=== PATIENT | male | born 1955 | race Caucasian/White ===

== ENCOUNTER 2025-02-17 10:40 | Emergency (ER) | payer MEDICARE, OTHER, SELFPAY ==
[2025-02-17] VITALS (11 sets, daily range): BP systolic 113–128; BP diastolic 70–74; PULSE 59–67; RESP 16; TEMP 36.3; O2SAT 94–97; BMI 27.3
--- NOTE | 2025-02-17 11:14 | ED.GENADULT ---
HPI - General Adult General Chief complaint: GI Bleed Stated complaint: hemmorrhoids Time Seen by Provider: 02/17/25 11:12 History of Present Illness HPI narrative: Patient here with daughter. Has urethral cancer diagnosed 11months ago. Has been going through chemo and immunotherapy. Cancer is progressing so they changed his treatment last week. This caused severe diarrhea. Held treatment yesterday due to this. Hasn't had a BM since yesterday and feels he is getting better. States he sat on the toilet this morning and lot of bright red blood came out but no stool. Took 2 hours to get it to stop . Patient concerned about what we should do now. Has hx of neurogenic bowel and bladder and is incontinent at baseline. 69-year-old man presenting to the emergency department with concern of prolonged rectal bleeding. It sounds as though it has now settled. Is receiving chemotherapy for urethral cancer and with treatment regimen changed last week as resulted in a lot of diarrhea. It sounds as though they think is fairly well-hydrated. Did receive a L of fluids yesterday. Has not had a bowel movement today. Has not had chemo yesterday either due to this diarrhea. This morning while attempting to use the bathroom had about 2 hours of bleeding from the rectum. History of hemorrhoids but is worried about continued bleeding. Not particularly lightheaded nor short of breath. No complaint of abdominal pain. 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 Related Data Home Medications ?Medication ?Instructions ?Recorded ?Confirmed acetaminophen 500 mg capsule 500 mg PO Q6H PRN 02/17/25 02/17/25 amitriptyline .ROUTE 02/17/25 calcium carb, citrate, malate PO 02/17/25 cyanocobalamin (vitamin B-12) PO 02/17/25 fluoxetine .ROUTE 02/17/25 gabapentin .ROUTE 02/17/25 multivitamin with iron .ROUTE 02/17/25 nifedipine PO 02/17/25 olanzapine .ROUTE 02/17/25 ondansetron .ROUTE 02/17/25 polyethylene glycol 3350 .ROUTE 02/17/25 prochlorperazine maleate PO 02/17/25 propranolol .ROUTE 02/17/25 rosuvastatin .ROUTE 02/17/25 senna .ROUTE 02/17/25 tamsulosin PO 02/17/25 tolterodine PO 02/17/25 tramadol .ROUTE 02/17/25 triamcinolone PO 02/17/25 Allergies Allergy/AdvReac Type Severity Reaction Status Date / Time No Known Drug Allergies Allergy Verified 02/17/25 11:00 Review of Systems Status of ROS: Reports: 6 or more systems reviewed and unremarkable except as noted in History and below Exam Narrative: Exam Narrative: Very pleasant. NAD. Skin is warm and dry. Breathing easily. Heart in regular rate and rhythm. Abdomen is soft and nontender. Returning later for anal and anoscopy exam shows a large hemorrhoid not terribly thrombosed just inside the anus at the 12 o'clock position. There is a clot well-formed clot noted on anoscopy. There is dried blood small amount in the anal area otherwise. No active bleeding at this time Const: Vital Signs, click to edit/add: Vital Signs - 24 hr 02/17/25 11:12 Temperature 97.3 F L Pulse Rate [Pulse Oximeter] 67 Respiratory Rate 16 Blood Pressure [Le ft Upper Arm] 117/73 Pulse Oximetry 94 Oxygen Delivery Me thod Room Air Documenting provider has reviewed patient's vital signs: yes Course Vital Signs Vital signs: Initial Vital Signs Temperature 97.3 F L 02/17/25 11:12 Temperature Source Temporal Artery Scan 02/17/25 11:12 Pulse Rate 67 02/17/25 11:12 Pulse Rhythm Regular 02/17/25 11:12 Pulse Strength 3+ Normal 02/17/25 11:12 Respiratory Rate 16 02/17/25 11:12 Blood Pressure 117/73 02/17/25 11:12 Blood Pressure Mean 87 02/17/25 11:12 Blood Pressure Position Sitting 02/17/25 11:12 Pulse Oximetry 94 02/17/25 11:12 Oxygen Delivery Method Room Air 02/17/25 11:12 Vital Signs Temperature 97.3 F L 02/17/25 11:12 Pulse Rate 67 02/17/25 11:12 Respiratory Rate 16 02/17/25 11:12 Blood Pressure 117/73 02/17/25 11:12 Pulse Oximetry 94 02/17/25 11:12 Oxygen Delivery Method Room Air 02/17/25 11:12 Temperature 97.3 F L 02/17/25 11:12 Pulse Rate 59 L 02/17/25 12:33 Respiratory Rate 16 02/17/25 11:12 Blood Pressure 114/72 02/17/25 12:32 Pulse Oximetry 94 02/17/25 12:33 Oxygen Delivery Method Room Air 02/17/25 11:12 Medical Decision Making MDM Narrative Medical decision making narrative: I have proposed checking at baseline hemoglobin here and other labs if there might be other indication for further workup. Check chemistries due to frequent diarrhea. This might be settling now after had not received his chemo yesterday. He feels he is fairly well-hydrated now. Does not appear to be active bleeding. Monitor here in the emergency department for continued bleeding. I do think that rectal passage bleeding is the likely source of the blood that he was describing. Monitor in the ER without further event. Labs are generally reassuring. . No neutropenia. At this time I do not think needs intervention with this hemorrhoid here in the ER. If he had sensation below the waist perhaps might be experiencing more pain given what I saw. I think since this is not bleeding at this time I would leave it alone. See patient discharge plan for further discussion It was a pleasure to take care of you today. Try to keep your stool soft. Focus on hydration and fiber intake. You might supplement with MiraLax equivalent. If this bleeding recurs and you can not get it to stop (maybe with a tampon) within 2 hours or you are feeling lightheaded, short of breath or for some reason having uncontrolled pain, please be re-evaluated. You might consider placing a hydrocortisone suppository nightly over the next 3 nights. Medical Records Medical records reviewed: Yes I reviewed the patient's medical records Lab Data Lab results reviewed: Yes I reviewed the patient's lab results Labs: Lab Results 02/17/25 Range/Units 11:35 WBC 3.75 L (4.50-11.00) K/uL RBC 4.54 (4.30-5.90) m/uL Hgb 13.7 (13.5-17.5) gm/dL Hct 40.2 (37.0-53.0) % MCV 89 (80-100) fL MCH 30 (26-34) pg MCHC 34 (32-36) gm/dL RDW Coeff of Ronnie 13.1 (11.5-15.5) % Plt Count 98 L (140-440) K/uL Neut % (Auto) 52.5 (42.0-72.0) % Lymph % (Auto) 28.5 (20-44) % [place] % (Auto) 9.1 (0.0-11.0) % Eos % (Auto) 9.1 H (0.0-7.0) % Baso % (Auto) 0.5 (0.0-3.0) % Neut # (Auto) 2.00 (1.7-7.0) K/uL Lymph # (Auto) 1.10 (0.90-2.90) K/uL [place] # (Auto) 0.30 (0.00-0.90) K/UL Eos # (Auto) 0.30 (0.00-0.50) K/uL Baso # (Auto) 0.00 (0.00-0.30) K/uL Abs Immat Gran (auto) 0.00 (0.00-0.30) K/uL Imm/Tot Granulo (auto) 0.3 % INR 1.00 (0.91-1.10) APTT 30 (23-33) Seconds Sodium 137 (135-149) mmol/L Potassium 4.1 (3.6-5.1) mmol/L Chloride 103 (96-114) mmol/L Carbon Dioxide 28 (20-32) mmol/L Anion Gap 6 L (7-15) mEq/L BUN 18 (7-30) mg/dL Creatinine 1.0 (0.5-1.5) mg/dL Estimated Creat Clear 78.78 Estimated GFR 80 ml/min Glucose 130 H (60-115) mg/dL Calcium 9.2 (8.4-10.6) mg/dL C-Reactive Protein 1.9 H (0.5-1.0) mg/dL Discharge Plan Discharge Clinical Impression: Bleeding hemorrhoid Patient Disposition: Home w/ Parent or Adult Condition: Improved Additional Instructions: It was a pleasure to take care of you today. Try to keep your stool soft. Focus on hydration and fiber intake. You might supplement with MiraLax equivalent. If this bleeding recurs and you can not get it to stop (maybe with a tampon) within 2 hours or you are feeling lightheaded, short of breath or for some reason having uncontrolled pain, please be re-evaluated. You might consider placing a hydrocortisone suppository nightly over the next 3 nights. Prescriptions: No Action acetaminophen 500 mg capsule 500 mg PO Q6H PRN amitriptyline .ROUTE calcium carb, citrate, malate PO cyanocobalamin (vitamin B-12) PO fluoxetine [Prozac] .ROUTE gabapentin [Neurontin] .ROUTE multivitamin with iron .ROUTE nifedipine PO olanzapine .ROUTE ondansetron .ROUTE polyethylene glycol 3350 [Miralax] .ROUTE prochlorperazine maleate PO propranolol [Inderal] .ROUTE rosuvastatin [Crestor] .ROUTE senna [Senokot] .ROUTE tamsulosin PO tolterodine [Detrol LA] PO tramadol .ROUTE triamcinolone [Aristocort] PO Follow Up/Referrals: Provider,Not a Local [Primary Care Provider, Family Practice] Stand Alone Forms: [email or web address] Info Instructions
[2025-02-17 11:42] LABS: Hematocrit* 40.2 % (37.0-53.0); Hemoglobin* 13.7 gm/dL (13.5-17.5); Immature Granulocytes Pct Auto 0.3 %; Mean Corpuscular HGB Conc 34 gm/dL (32-36); Mean Corpuscular Hemoglobin 30 pg (26-34); Mean Corpuscular Volume 89 fL (80-100); RDW Coefficient of Variation % 13.1 % (11.5-15.5); Red Blood Count* 4.54 m/uL (4.30-5.90); White Blood Count* 3.75 K/uL (4.50-11.00)
[2025-02-17 11:44] LABS: Immature Granulocytes Abs Auto 0.00 K/uL (0.00-0.30); Lymphocytes Absolute Auto 1.10 K/uL (0.90-2.90); Slide Review Reflex No
[2025-02-17 11:54] LABS: Chloride* 103 mmol/L (96-114)
[2025-02-17 11:55] LABS: Potassium* 4.1 mmol/L (3.6-5.1); Sodium* 137 mmol/L (135-149)
[2025-02-17 11:58] LABS: Anion Gap 6 mEq/L (7-15); Blood Urea Nitrogen* 18 mg/dL (7-30); Calcium* 9.2 mg/dL (8.4-10.6); Carbon Dioxide* 28 mmol/L (20-32); Creatinine* 1.0 mg/dL (0.5-1.5); Est. Creatinine Clearance* 78.78; Estimated Glomerular Filt Rate 80 ml/min; Glucose* 130 mg/dL (60-115)
[2025-02-17 13:00] LABS: INR 1.00 (0.91-1.10); Prothrombin Time 14.0 Seconds
== END 2025-02-17 13:20 | disposition home or self-care (01) ==
PROVIDERS: Emergency Provider Family Medicine
DX: K64.9 Unspecified hemorrhoids (principal); C68.0 Malignant neoplasm of urethra; Z79.69 Long term (current) use of other immunomodulators and immunosuppressants
CPT/HCPCS: 36415; 80048; 85025; 85610; 85730; 86140; 99283; 99284

== ENCOUNTER 2025-04-06 12:23 | Observation (INO) | payer MEDICARE, OTHER, SELFPAY ==
[2025-04-06] VITALS (8 sets, daily range): BP systolic 107–160; BP diastolic 52–77; PULSE 6–93; RESP 8–28; TEMP 36.4–37.3; O2SAT 81–95; BMI 27.3; BMI 27.4
--- NOTE | 2025-04-06 | CRLHL7_ITS ---
For Patients: As a result of the Century Cures Act, medical imaging exams and procedure reports are released immediately into your electronic medical record. You may view this report before your referring provider. If you have questions, please contact your health care provider. INDICATION: Abnormality seen on abdomen/pelvis CT scan. TECHNIQUE: CT chest without contrast. COMPARISON: CT, January 24, 2025. FINDINGS: Lungs and pleura: Worsening diffuse bilateral pulmonary nodules/nodular consolidations, some with cavitations. No pleural effusions, pleural thickening, or pneumothorax. Heart and vasculature: Heart size is normal. Coronary artery calcifications. Thoracic aorta and pulmonary artery are normal in caliber. Lymph nodes/mediastinum: Multiple mildly enlarged mediastinal and bilateral hilar lymph nodes.. Chest wall: No masses. Upper abdomen: Please refer to same-day CT abdomen/pelvis for further evaluation.. Bones: Posterior thoracolumbar hardware fixation. IMPRESSION: Worsening diffuse bilateral pulmonary nodules/nodular consolidations, some with cavitations, likely worsening pulmonary metastasis in this patient with known malignancy. Superimposed infection should be clinically excluded. Persistent multiple mildly enlarged mediastinal bilateral hilar lymph nodes. Please note that all CT scans at this facility use dose modulation, iterative reconstruction, and/or weight-based dosing when appropriate to reduce radiation dose to as low as reasonably achievable. Dictated by Ryan Gonzalez MD @ 04/06/2025 2:39:15 PM (Electronically Signed)
--- OUTSIDE RECORDS SUMMARY | 2025-04-06 12:25 | XMS_ITS | Data Portability ---
Author Organization [facility], [facility] Address [address] [place] [address] Care Team Providers [facility] Manager Name Role Phone [facility] Primary Care Provider Assessment No assessment recorded. Plan of Treatment Reminders Order Date Submit Date Provider Last Modified By Organization Details Last Modified Time Details Appointments None recorded. 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 2024 025 [email or web address] 4 [facility], [address], [place], [address], 5 15:27:41 Procedures None recorded. Surgeries None recorded. Imaging None recorded. Medication Orders None recorded. Patient TargetsNo targets recorded. 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 The stricture biopsies were benign but there could be cancer there (I'll note the biopsies went into lamina propria, and were meaty, as confirmed in the path), but sampling error is possible, as well as a primary lesion more proximal that was not detected and/or sampled. I've reached to his medical oncologist, Dr. Zhou to clarify his treatment plan as it will impact our plan for the stent and for future sampling consideration. For now, the plan will be to exchange the stent in 3 months, with the presumption to optimize renal function in prep for what could be a chemo based treatment regimen. Juan Pablo and his daughter agree with this plan and he knows that he must keep track of that stent's existence in the interim, no matter the timeline, for exchange in 3 months. Not available 04/29/2024 09:34:04 09/17/2024 [id number] We are amidst persistent UTI after stent placement - I do not think biofilm is a factor at 4 weeks but if UTIs continue we may need to exchange stent sooner. We also are tracking his progress with treatment and could consider right neph-U for both oncologic control and to eliminate his persistent UTIs if they continue, should we find his systemic treatment progress supports such a move. Culture sent today, following. Not available 09/17/2024 17:36:33 03/05/2025 [id number] Juan Pablo has increasing lung burden of his metastatic disease, and is not tolerating the stent for local control of his obstructive cancer. We have discussed options like conversion to PCN (he wishes to begin this process), and also palliative nephrectomy - but I question his surgical candidacy for this - he understands this. We'll try some Gemtesa for the bladder spasms, but may need to remove the stent and proceed with PCN. Discussed case with his oncologist, who is seeing him in 11 days, with updated imaging. We've been attempting to optimize GFR for his gem/carbo et al treatments, this remains a goal for now. Not available 03/05/2025 14:08:25 Reason for Referral Interventional Radiologist R eferral for Hydronephrosis Has obstructed right kidney (urothelial cancer), has stent, but cannot tolerate stent, please eval/treat for right PCN placement. Referring Physician: Carlos Eduardo Marks, Urology, Encounter Date: 03/05/2025 Results Created Date Observation Date Name Description Value Unit Range Abnormal Flag Note LastModifiedBy Organization Detail LastModifiedTime 09/18/1909/17/2024 URINE CULTU RE final report MICROB IOLOGY RESULT S SOURC E Void KNOWN ALLER GIES adhes spencer tape TREAT MENT on Cipro floxi n MEDIA PLATE D AT: Media plate d on 2024 @ 5:41 PM RESUL T No Growt h This lab resul t is being provi ded to you and your provi erlin at the same time in compl iance with the ry Cures Act. Your provi erlin may not have had time to revie w and make recom menda tions based on the resul t. Pleas e allow up to one week for provi erlin revie w. Not Available [facility] [address], [place], [address], 09/19/2024 13:28:23 09/18/19 25 09/17/2024 urina lysis , dipst ick Color-Status Yellow Not Available [facility] [address], [place], [address], 09/17/2024 14:49:22 09/18/19 25 09/17/2024 urina lysis , dipst ick Clarity-Stat us Clear Not Available [facility] [address], [place], [address], 09/17/2024 14:49:22 04/07/20 24 04/06/2024 fluor oscop y evalu ation (PROC ) No observ ation record ed. [facility] [address], [place], [address], 04/07/2024 17:51:34 02/04/20 25 02/03/2025 CT, abdom en + pelvi s, w/o contr ast No observ ation record ed. [facility] (Radiology) [address] [facility] [place], [address], 02/03/2025 17:28:04 02/06/20 25 02/05/2025 fluor oscop y (PROC ) No observ ation record ed. [email or web address] Not Available 10:37:36 03/20/20 25 03/19/2025 anteg rade nephr ostog luis daniel and/o r urete rogra m, injec tion proce dure (PROC ) No observ ation record ed. [facility] [address], [place], [address], 03/22/2025 15:27:31 Result Notes None recorded. 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 4 09:26:24 Metastatic malignant neoplasm to liver 47881416 Active 2023 Carlos Eduardo marroquin MD [address] [place] [address],[address] [place] [address], [address], [facility] 4 09:30:57 Metastatic malignant neoplasm to lung 28349789 Active 2023 Carlos Eduardo marroquin MD [address] [place] [address],[address] [place] [address], [address], [facility] 4 09:34:13 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 5329155310349 00 Active 2024 Carlos Eduardo marroquin MD [address] [place] [address],[address], [place], [address], [facility] 5 16:51:26 Hydronephro sis 99194851 Active 2024 Carlos Eduardo marroquin MD [address] [place] [address],[address], [place], [address], [facility] 08:52:13 Ureteric pain 205560521 Active 2024 Carlos Eduardo marroquin MD [address] [place] [address],[address], [place], [address], [facility] 13:09:07 Stricture of ureter 29889600 Active 2024 Carlos Eduardo marroquin MD [address] [place] [address],[address], [place], [address], [facility] 10:15:27 Lower urinary tract symptoms due to benign prostatic hypertrophy 0505137126255 1 Active 2024 Carlos Eduardo marroquin MD [address] [place] [address],[address], [place], [address], [facility] 16:56:24 Right flank pain 598529459 Active 2024 Carlos Eduardo marroquin MD [address] [place] [address],[address], [place], [address], [facility] 09:05:37 Spasm of urinary bladder 477383170 Active 2024 Carlos Eduardo marroquin MD [address] [place] [address],[address], [place], [address], [facility] 13:56:41 Problem Notes None recorded. Procedures Surgical History Date Name Laterality Status Provider Name and Address Organization Details Recorded Time 03/05/20 25 COMPLEX VISIT completed Carlos Eduardo Marks MD [address] [place] [address],[address], [place], [address], [facility] 03/05/2025 13:56:05 08/13/19 25 CYSTOSCOPY WITH URETERAL STENT EXCHANGE (SURG) completed Joann Rae [facility] 08/14/2024 15:14:30 04/06/20 24 ureterostomy completed Corinna Pugh [facility] 04/28/2024 10:56:42 04/27/20 19 colonoscopy completed Corinna Pugh [facility] 04/28/2024 10:57:39 Imaging Results None recorded. Procedure Notes None recorded. Medical Equipment None Reported. Allergies Allergen ID Allergen Name Allergen Category Reaction Reaction Severity Criticality Documentation Date Start Date Code Code System Note Provider Name and Address Organization Details Recorded Time 322360 adhesive tape environme nt,medica tion Not available Not available Not available 09/17/2024 Rhonda ramos, [facility] 14:46:57 930514 Adhesive agent (substanc e) environme nt,medica tion rash Not available Not available 03/20/20252024 19739 0007 SNOMED Not Available roshan - External Data Service - prod 09:53:02 Medications Name Sig Start Date Stop Date Status Note LastModified by Organization Details LastModified Time Prescriptio n - Renewal active Not Available Not Available Not Available gabapentin 600 mg tablet TAKE ONE TABLET BY MOUTH THREE TIMES DAILY active Not Available Not Available No t Available polyethylen e glycol 3350 17 gram oral powder packet TAKE ONE PACKET (17 G TOTAL) BY MOUTH DAILY. active Not Available Not Available No t Available azithromyci n 250 mg tablet 04/28 completed Not Available Not Available Not Available senna 8.6 mg tablet TAKE ONE TABLET BY MOUTH ONCE DAILY NEEDED FOR CONSTIPAT ION. active Not Available Not Available No t Available prednisone 20 mg tablet TAKE 3 TABLETS BY MOUTH DAILY. TAKE WITH FOOD TO PREVENT STOMACH UPSET 02/28 completed Not Available Not Available Not Available nifedipine ER 30 mg tablet,exte nded release TAKE 1 TABLET BY MOUTH DAILY 09/17 completed Not Available Not Available Not Available ciprofloxac in 500 mg tablet TAKE 1 TABLET BY MOUTH EVERY 12 HOURS WITH FOOD 02/28 completed Not Available Not Available Not Available tramadol 50 mg tablet TAKE 1 TABLET BY MOUTH EVERY 6 HOURS NEEDED FOR PAIN active Not Available Not Available No t Available amitriptyli ne 50 mg tablet TAKE ONE TABLET BY MOUTH NIGHTLY AT BEDTIME active Not Available Not Available No t Available triamcinolo ne acetonide 0.1 % topical cream APPLY TOPICALLY TO THE AFFECTED AREA TWICE DAILY active Not Available Not Available No t Available tamsulosin 0.4 mg capsule TAKE 1 CAPSULE BY MOUTH EVERY DAY active Not Available Not Available No t Available Mapap (acetaminop hen) 500 mg capsule TAKE TWO CAPSULES BY MOUTH TWICE DAILY NEEDED FOR PAIN. active Not Available Not Available No t Available cephalexin 500 mg capsule TAKE 1 CAPSULE BY MOUTH EVERY 8 HOURS 09/17 completed Not Available Not Available Not Available gabapentin 300 mg capsule Take 1 capsule 3 times a day by oral route. active Not Available Not Available No t Available albuterol sulfate HFA 90 mcg/actuati on aerosol inhaler INHALE 2 PUFFS BY MOUTH FOUR TIMES DAILY NEEDED FOR SHORNTESS OF BREATH 02/28 completed Not Available Not Available Not Available propranolol 20 mg tablet TAKE ONE TABLET BY MOUTH THREE TIMES DAILY active Not Available Not Available No t Available nifedipine ER 60 mg tablet,exte nded release TAKE 1 TABLET BY MOUTH DAILY active Not Available Not Available No t Available amoxicillin 875 mg-potassiu m clavulanate 125 mg tablet TAKE 1 TABLET BY MOUTH TWICE DAILY WITH MEALS FOR 7 DAYS 04/28 completed Not Available Not Available Not Available rosuvastati n 20 mg tablet active Not Available Not Available Not Available duloxetine 30 mg capsule,del ayed release TAKE ONE CAPSULE BY MOUTH ONCE DAILY IN THE MORNING active Not Available Not Available No t Available fluoxetine active Not Available Not Av ailable Not Available propranolol active BID Not Available Not A vailable Not Available Tylenol active PRN Not Available Not Avail able Not Available Vitamin B12 active Not Available Not A vailable Not Available Vitals Date Recorded Body height Body mass index (BMI) Body weight Provider Name and Address Organization Details Last Updated DateTime 09/17/2024 185.42 cm 30.3 kg/m2 516132.25 g Rhonda Chase [facility] 09/17/2024 14:46:14 Date Recorded Body height Body mass index (BMI) Body weight Provider Name and Address Organization Details Last Updated DateTime 03/05/2025 185.42 cm 28.4 kg/m2 09492.36 g Kaylyn Mathis [facility] 03/05/2025 09:42:08 Date Recorded Body height Body mass index (BMI) Body weight Provider Name and Address Organization Details Last Updated DateTime 04/28/2024 185.42 cm 27.7 kg/m2 97846.4 g Corinna Pugh [facility] 04/28/2024 10:54:39 Social History Question Answer Notes LastModified by Organizat ion Details LastModified Time Tobacco Smoking Status Never Smoker Corinna Keaton [facility] 04/28/2024 10:56:25 Do You Have An Advance Directive? Yes Information not available 09/17/2024 What Is Your Level Of Caffeine Consumption? None Information not available 04/28/2024 Race White Information no t available 09/17/2024 Ethnicity Not /Lat rohan Information not available 09/17/2024 Preferred Language Irish Information not available 09/17/2024 Do You Have A Medical Power Of Director Heart? Yes Information not available 09/17/2024 What Was The Date Of Your Most Recent Tobacco Screening? 09/17/2024 Information not available 09/17/2024 Has Tobacco Cessation Counseling Been Provided? No Information not available 09/17/2024 Sex: Male Functional Status Question Answer Note LastModified by Organizat ion Details LastModified Time Do you use any illicit or recreational drugs? No Information not available 09/17/2024 Do you or have you ever used any other forms of tobacco or nicotine? No Information not available 09/17/2024 What is your level of alcohol consumption? None Information not available 04/28/2024 Mental Status None recorded. Family History Nothing Reported. Medical History Condition Response Other N High Blood Pressure Y Kidney Stones N Lung Disease N Depression N GERD/Acid Reflux N Diabetes N Sexually Transmitted Infection N Bleeding Disorder N Cancer Y High Cholesterol Y Heart Disease N Immunizations Vaccine Type Date Status Note Provider Nam e and Address Organization Details Recorded Time Influenza, split virus, trivalent, preservative 4 completed Not Available [facility] 03/05/2025 09:27:51 Influenza, split virus, trivalent, preservative 7 completed Not Available [facility] 03/05/2025 09:27:51 Influenza, split virus, trivalent, preservative 8 completed [facility] Available [facility] 03/05/2025 09:27:51 Td (adult), 5 Lf tetanus toxoid, preservative free, adsorbed 8 completed Not Available [facility] 03/05/2025 09:27:51 Influenza, split virus, trivalent, preservative 8 completed Not Available [facility] 03/05/2025 09:27:51 pneumococcal polysaccharide PPV23 0 completed Not Available [facility] 03/05/2025 09:27:51 influenza, unspecified formulation 1 completed Not Available [facility] 03/05/2025 09:27:51 influenza, unspecified formulation 3 completed Not Available [facility] 03/05/2025 09:27:51 Influenza, split virus, quadrivalent, preservative 5 completed Not Available [facility] 03/05/2025 09:27:51 Tdap 7 completed Not Available [facility] 03/05/2025 09:27:51 Influenza, split virus, quadrivalent, PF 7 completed Not Available [facility] 03/05/2025 09:27:51 Influenza, split virus, quadrivalent, PF 8 completed Not Available [facility] 03/05/2025 09:27:51 zoster recombinant 0 completed Not Available [facility] 03/05/2025 09:27:51 Pneumococcal conjugate PCV 13 0 completed Not Available [facility] 03/05/2025 09:27:51 Influenza, high-dose, quadrivalent, PF 0 completed Not Available [facility] 03/05/2025 09:27:51 COVID-19, mRNA, LNP-S, PF, 100 mcg/0.5mL dose or 50 mcg/0.25mL dose 1 completed Not Available [facility] 03/05/2025 09:27:51 COVID-19, mRNA, LNP-S, PF, 100 mcg/0.5mL dose or 50 mcg/0.25mL dose 1 completed Not Available [facility] 03/05/2025 09:27:51 Influenza, high-dose, quadrivalent, PF 1 completed Not Available [facility] 03/05/2025 09:27:51 pneumococcal polysaccharide PPV23 1 completed Not Available [facility] 03/05/2025 09:27:51 zoster recombinant 1 completed Not Available [facility] 03/05/2025 09:27:51 COVID-19, mRNA, LNP-S, PF, 100 mcg/0.5mL dose or 50 mcg/0.25mL dose 1 completed Not Available [facility] 03/05/2025 09:27:51 COVID-19, mRNA, LNP-S, PF, 100 mcg/0.5mL dose or 50 mcg/0.25mL dose 2 completed Not Available [facility] 03/05/2025 09:27:51 COVID-19, mRNA, LNP-S, bivalent, PF, 50 mcg/0.5 mL or 25mcg/0.25 mL dose 2 completed Not Available [facility] 03/05/2025 09:27:51 Influenza, high-dose, quadrivalent, PF 2 completed Not Available [facility] 03/05/2025 09:27:51 Influenza, adjuvanted, quadrivalent, PF 3 completed Not Available [facility] 03/05/2025 09:27:51 COVID-19, mRNA, LNP-S, PF, noel-sucrose, 30 mcg/0.3 mL 3 completed Not Available [facility] 03/05/2025 09:27:51 COVID-19, mRNA, LNP-S, PF, noel-sucrose, 30 mcg/0.3 mL 4 completed Not Available [facility] 03/05/2025 09:27:51 Influenza, high-dose, trivalent, PF 4 completed Not Available [facility] 03/05/2025 09:27:51 Influenza, high-dose, trivalent, PF 5 completed Not Available [facility] 03/05/2025 09:27:51 Past Encounters Encounter ID Performer Location Encounter Start Date Encounter Closed Date Diagnosis/Indication Diagnosis SNOMED-CT Code Diagnosis ICD10 Code Diagnosis IMO Codes Diagnosis Note [id number] Carlos Eduardo Marks MD [facility] [address] 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 [address] [place] [address] 09/17/2024 14:32:45 09/23/2024 11:25:04 Lower urinary tract symptoms 821971435 R39.9 3789903 Transition al cell carcinoma of upper urinary tract 6921180742 C68.9 Metastatic malignant neoplasm to lung 41377367 C78.00 Metastatic malignant neoplasm to liver 96038391 C78.7 Hydronephrosis 40621838 N13.30 391269 [id number] Carlos Eduardo Marks MD [facility] [address] [place] [address] 03/05/2025 09:26:49 03/10/2025 09:36:32 Stricture of ureter 46012022 N13.5 347183 Transition al cell carcinoma of upper urinary tract 7892665037 C68.9 Metastatic malignant neoplasm to lung 40120148 C78.00 Metastatic malignant neoplasm to liver 35860182 C78.7 Lower urin lorene tract symptoms 153676417 R39.9 9391076 Hydronephrosis 56163567 N13.30 326067 Spasm of u rinary bladder 224832135 N32.89 [id number] Health Concerns Section Related Observation LastModified by Organization Detai ls LastModified Time None Recorded Concern Status LastModified by Organization Details LastModified Time None Recorded Advance Directives Directive Y: Payers Insurance Date Sequence Insurance Name Policy Number Policy Connor Covered Member ID Connor Member ID Guarantor Name 01/07/2025 2 [employer] (MEDICARE SUPPLEMENT) Juan Pablo Bernstein [id number] Juan Pablo Bernstein 03/02/2025 2 [place]: [employer] Juan Pablo Bernstein [id number] Juan Pablo Bernstein 04/02/2025 1 [employer] - [employer] (MEDICARE REPLACEMENT/A DVANTAGE - HMO) Juan Pablo Bernstein [id number] Juan Pablo Bernstein Notes Date Note Type Note Provider Name and Address Organization Details Recorded Time 04/28/2024 text/html 68M presents for follow up related to metastatic lung and liver cancer, where the primary was suspected to be UCC. CT showed right hydroureter down to a mid ureteral stricture with sharp transition, and equivocal PET scan. He is now s/p right URS diagnostic, with biopsy of this area, and proximal ureteral cytology. The ureteral stricture was confirmed, did not look overtly malignant by appearance, and its biopsies were benign. However the cytology from urine washings proximal to the stricture was frankly positive for malignant cells, consistent with UTUCC. Juan Pablo currently still has the stent in place. He has been already linked up with medical oncology, and prior to our surgery was s/p lung mass biopsy which suggested urothelial cell carcinoma primary. Patient is at his baseline today, without complaints, tolerating the stent well. Carlos Eduardo Marks MD [address] [place] [address],[address], [place], [address], [facility] 04/29/2024 09:34:25 09/17/2024 text/html 68M presents for follow up related to metastatic lung and liver cancer, UTUCC primary. CT showed right hydroureter down to a mid ureteral stricture with sharp transition, and equivocal PET scan. Right URS diagnostic, with biopsy of this area, and proximal ureteral cytology. The ureteral stricture was confirmed, did not look overtly malignant by appearance, and its biopsies were benign. However the cytology from urine washings proximal to the stricture was frankly positive for malignant cells, consistent with UTUCC. Juan Pablo is now s/p right ureteral stent exchange 08/12/2024. He has been already linked up with medical oncology, and prior to our surgery was s/p lung mass biopsy which suggested urothelial cell carcinoma primary. Receiving chemo and immuno therapy. My understanding is that he is responding. Since Jul 2024 stent exchange he has had LUTS develop acutely, UTI suspected, ABX given with temp improvement, then recurrence, now on cipro with culture from med-onc team pending from Saturday. UA today consistent with stent presence, sending culture. Carlos Eduardo Marks MD [address] [place] [address],[address], [place], [address], [facility] 09/17/2024 17:37:07 03/05/2025 text/html 69M presents for follow up related to metastatic lung and liver cancer, UTUCC primary. CT showed right hydroureter down to a mid ureteral stricture with sharp transition, and equivocal PET scan. Right URS diagnostic, with biopsy of this area, and proximal ureteral cytology. The ureteral stricture was confirmed, did not look overtly malignant by appearance, and its biopsies were benign. However the cytology from urine washings proximal to the stricture was frankly positive for malignant cells, consistent with UTUCC. Right ureteral stent exchange 08/12/2024.Stent removal 11/13/24CT on 02/03/25 for flank pain- delayed right nephrogramStent replacement on 02/[address] Dong He is linked up with medical oncology, and prior to our surgery was s/p lung mass biopsy which suggested urothelial cell carcinoma primary. S/p chemo and immuno therapy. My understanding is that he is responding. With the stent- he has had LUTS, multiple neg cultures, and in general is not tolerating it well. The worst complaints are bladder end - spasms, frequency, urgency, leakage. Carlos Eduardo Marks MD [address] [facility],[address], [place], [phone], [facility] 03/05/2025 14:08:38
--- OUTSIDE RECORDS SUMMARY | 2025-04-06 12:25 | XMS_ITS | Encounter Summary ---
Author Organization [facility] Address [address] [place] [address] Care Team Providers Care Manager Of Corporate Name Role Phone Loretta Mcclellan P.A.-C. Primary Care Provider Reason for Visit * Reason Onset Date Comments Forms 02/24/2025 Encounter Details Date Type Department Care Team (Late st Contact Info) Description 02/24/2025 Clinical Communication Department of Orthopedic Surgery in [address] [phone] Steffen Jalloh M.D. [address] [phone] Forms Social History Tobacco Use Types Packs/Day Years Used Date Smoking Tobacco: Never Smokeless Tobacco: Never Alcohol Use Standard Drinks/Week Comments Never 0 (1 standard drink = 0.6 oz pur e alcohol) [facility] Utilities Answer Date Recorded In the past 12 months has e electric, gas, oil, or water company threatened to shut off services in your home? No 07/31/2024 Humiliation, Afraid, Rape, and Kick questionnair e Answer Date Recorded Within the last year, have y ou been afraid of your partner or ex-partner? No 12/25/2022 Within the last year, have y ou been humiliated or emotionally abused in other ways by your partner or ex-partner? No Within the last year, have y ou been kicked, hit, slapped, or otherwise physically hurt by your partner or ex-partner? No 12/25/2022 Within the last year, have y ou been raped or forced to have any kind of sexual activity by your partner or ex-partner? No 12/25/2022 Hunger Vital Sign Answer Date Recorded Within the past 12 months, y ou worried that your food would run out before you got the money to buy more. Never true 08/01/19 25 Within the past 12 months, t he food you bought just didn't last and you didn't have money to get more. Never true 07/31/2024 PRAPARE - Transportation Answer Date Re corded In the past 12 months, has l ack of transportation kept you from medical appointments or from getting medications? No 11/2024 In the past 12 months, has l ack of transportation kept you from meetings, work, or from getting things needed for daily living? No 07/31/2024 Depression Answer Date Recor ded PHQ-9 Total Score (max 27) 4 02/09 Housing Stability Answer Date Recorded What is your living situation today? I have a [employer] place to live 07/31/2024 Education Answer Date Recorded What is the highest level of school you have completed or the highest degree you have received? Associate degree: occupational, technical, or vocational program 11/10/2018 Sex and Gender Information Value Date Recorded Sex Assigned at Male 11/04/2017 7:49 PM CDT Legal Sex Male 8:24 AM [employer] Gender Identity Male 08/25/2020 8:32 PM CDT Sexual Orientation Straight 08/25/2020 8: 32 PM CDT Occupation Industry Job Start Date Job End Date Not on file Not on file Not on file Not on file documented as of this encounter Miscellaneous Notes * Telephone Encounter - Sita Vazquez C.M.A. - 02/24/2025 2:14 PM CDT Norah is calling about [employer] letter & info request that was sent in in November (12/17/24). Norah states that letter was addressed to Dr. Jalloh and that there were questions on that form and information that needed to be completed. In checking, it looks like the form was only scanned to chart, andnever addressed or responded to. On page 3 of 8, of this scanned document, there were a few specific questions that needed to be addressed and responded to. Left these documents in Dr. Jalloh's Inbox, on his desk, to see if he is able to answer and respond, for this court case. He should respond and give to Nursing to bill and return to law office. Norah is going to give it 7-10 business to be completed. They have been waiting since November. documented in this encounter Plan of Treatment Not on file documented as of this encounter Visit Diagnoses Not on filedocumented in this encounter Additional Health Concerns Assessment Noted Time PHQ-9 Depression Total Score: 4 02/10/20 21 8:38 AM CDT A fall risk assessment has been complete d for the patient 11/18/2019 1:08 PM CDT documented as of this encounter Care Teams Manager Of Corporate Relationship Specialty Start Date End Date Loretta Mcclellan P.A.-C. [address] [place] [phone] PCP - General 07/15/24 documented as of this encounter
--- OUTSIDE RECORDS SUMMARY | 2025-04-06 12:25 | XMS_ITS | Clinical Summary ---
Author Organization [facility] Address [address] [place] [id number] Care Team Providers Care Furnace Installer Name Role Phone Loretta Mcclellan P.A.-C. Primary Care Provider Source Comments Patient records contain information from all sites at [facility]. For routine questions regarding patient records, call [phone] during business hours, M-F 8:00 AM - 5:00 PM Central Time. Record requests for emergency care only can be directed to [phone] at any time.[facility] Allergies Active Allergy Reactions Criticality Noted Date Comments Adhesive Rash 08/04/2024 Adhesive Tape-Silicones Rash Low 02/11/2015 Medications * This document contains information received from the source organization and may not represent a complete record from that organization. MULTIVITAMIN ORAL Take 1 tablet by mouth daily. 1 Active cyanocobalamin (VITAMIN B12) 500 mcg tablet Take 500 mcg by mouth daily. Active albuterol 90 mcg/actuation inhaler Inhale 2 puffs 4 (four) times a day as needed. 4 Active ondansetron (Zofran) 4 mg tablet Active pembrolizumab (Keytruda) 25 mg/mL injection Infuse 200 mg into a venous catheter. 5 Active prochlorperazine (Compazine) 10 mg tablet Take 1 tablet by mouth. 4 Active triamcinolone (Kenalog) 0.1 % cream Apply topically. 5 Active EPINEPHrine (Adrenalin) 1 mg/mL (1 mL) injection Inject 0.3 mg intramuscula rly. 4 Active multivit with minerals/lutein (MULTIVITAMIN 50 PLUS ORAL) Active melatonin 3 mg tablet Active NIFEdipine (Adalat CC) 60 mg ER tablet Take by mouth. 5 Active ondansetron ODT (Zofran-ODT) 8 mg disintegrating tablet Dissolve in the mouth. 4 Active rosuvastatin (Crestor) 20 mg tablet Take 1 tablet (20 mg total) by mouth daily. 90 tablet 3 5 Active acetaminophen (TylenoL) 500 mg capsule Take by mouth every 6 (six) hours as needed for pain. Active acetaminophen (TylenoL) 500 mg capsule Take by mouth every 6 (six) hours as needed for pain. Active acetaminophen (Mapap, acetaminophen,) 500 mg capsule Take 2 capsules (1,000 mg total) by mouth 2 (two) times a day as needed for pain. 360 capsule 3 5 Active amitriptyline (ElaviL) 50 mg tablet Take 1 tablet (50 mg total) by mouth at bedtime. 90 tablet 3 5 Active propranoloL (InderaL) 20 mg tabletIndications:T remor Essential Take 1 tablet (20 mg total) by mouth 3 (three) times a day. 270 tablet 3 5 Active DULoxetine (Cymbalta) [address] capsule Take 1 capsule (30 mg total) by mouth every morning. 90 capsule 3 5 Active sennosides (senna) 8.6 mg tabletIndications:C onstipation Take 1 tablet (8.6 mg total) by mouth daily as needed for constipation . 90 tablet 3 5 Active polyethylene glycol (Miralax) 17 gram powder packet Take 1 packet (17 g total) by mouth daily. 90 packet 3 5 02/09/20 26 Active gabapentin (Neurontin) 600 mg tablet Take 1 tablet (600 mg total) by mouth 3 (three) times a day. 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 Metastatic sites include lungs, mediastinal lymph nodes, and liver. Follows with [facility], currently undergoing chemotherapy. Clinical notes available in document viewer. Secondary Malignant Neoplasm Lung Right 03/26/20 Assessment & Plan (08/06/2024 11:27 AM CDT): See plan above. Secondary Malignant Neoplasm Of Liver And Intrahepatic Bile Duct 03/26/2024 Assessment & Plan (08/06/2024 11:27 AM CDT): See plan above. Carpal Tunnel Syndrome Bilateral 09/25/2018 History Of Falling 04/14/2018 Assessment & Plan (08/06/2024 11:27 AM CDT): He ambulates in a wheelchair. We did not discuss any recent falls. Impaired Fasting Glucose 12/13/2017 High Risk Medication 12/13/2017 Constipation 01/21/2017 Hyperlipidemia 01/21/2017 Assessment & Plan (08/06/2024 11:27 AM CDT): Continue rosuvastatin 20 mg daily. Pain Low Back Chronic 01/21/2017 Fusion Lumbar Spine Status Post 04/14/2015 Paraplegia 03/21/2015 Assessment & Plan (08/06/2024 11:27 AM CDT): See above. Orders: [facility]clinic) Cauda Equina Syndrome With Neurogenic Bladder Assessment & Plan (08/06/2024 11:27 AM CDT): History of cauda equina syndrome with neurogenic bowel and bladder. He ambulates in a wheelchair. Pain and neurologic symptoms managed with amitriptyline 50 mg daily, Cymbalta 30 mg daily, and gabapentin 400 mg TID. Orders: [facility] - [facility] (clinic) DJD (OA) Knee Grant 10/07/2013 Overview (11/11/2017): Per X-Ray. Tremor Essential 10/07/2013 Overview (11/11/2017): Saw Dr. Marry Aguirre. Assessment & Plan (08/06/2024 11:27 AM CDT): Adjusted propranolol prescription to read as patient reports taking 20 mg TID. Noted that patient finds propranolol also beneficial for his pain. Thoracic Aortic Aneurysm Without Rupture Unspeci fied 09/11/2010 Overview (02/08/2025): I reviewed his echocardiogram completed August 2023 through [facility]. Normal mid ascending aortic diameter of 40 mm. Hypertension Essential Primary 09/11/2010 Overview (02/08/2025): Continue nifedipine 60 mg daily. This is prescribed by [facility]. Assessment & Plan (08/06/2024 11:27 AM CDT): Continue nifedipine 60 mg daily. This is prescribed by [facility]. 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 TSH levels have been normal, last checked Feb 2024. Degeneration Disc Lumbosacral 03/09/2009 Overview (11/11/2017): Overview: S/p multiple surgical procedures BenignProstatic Hyperplasia Localized 05/27/2008 Neurogenic Bladder Assessment & Plan (08/06/2024 11:27 AM CDT): He is able to void a small amount on his own but has a difficult time fully emptying his bladder. He performs self catheterization 3-4 times daily Resolved Problems Problem Noted Date Diagnosed Date Resolved Date Malignant Neoplasm Of Bladder 08/06/2024 08/06/2024 Abscess Abdominal Wall 07/28/202105/16 Skin Ulcer Non Pressure NOS 11/18/2019 05/16/2023 Numbness 04/14/2018 08/06/2024 Overview (04/14/2018): Fingers and hands Pain Neck 04/14/2018 08/06/2024 Keratosis Actinic 12/24/2017 02/08/2025 Overview (12/24/2017): On back Annual Medicare Examination Return 12/13/2017 05/16/2023 Debility 03/20/2015 02/08/2025 Primary Osteoarthritis Spine With Myelopathy 5 05/16/2023 Meningitis 03/09/2009 12/13/2017 Overview (11/11/2017): Overview: Resulting neurogenic bladder and bowel Complete loss of LE sensation 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 07/05 Spinal Stenosis Lumbar Regio n Without Neurogenic Claudication 03/09/2009 05/16/2023 Keratosis Seborrheic 025 Encounters * This document contains information received from the source organization and may not represent a complete record from that organization. Date Type Department Care Team Description 02/24/2025 Clinical Communication Department of Orthopedic Surgery in [place], [place] [address] [place] [address] Steffen Jalloh M.D. Forms 02/08/2025 3:00 PM CDT Office Visit Department of [facility] in [place], [place] [address] [place] [address] Loretta Mcclellan, P.A.-C. Cauda Equina Syndrome With Neurogenic Bladder (HCC) (Primary Dx); Paraplegia (HCC); Tremor Essential; Constipation; Malignant Neoplasm Of Urinary Organ (HCC); Secondary Malignant Neoplasm Of Liver And Intrahepatic Bile Duct (HCC); Secondary Malignant Neoplasm Lung Right (HCC); Hyperlipidemia 01/27/2025 Orders Only [facility] Loretta Mcclellan, P.A.-C. from Last 3 Months Immunizations Immunization Administration Dates Next Due Influenza Split 03/14/2015 Influenza high dose QV(65 ye ars or older) (PF) 03/23/2022,03/08/2021,03/17/2020 Influenza, Injectable, Quadrivalent 03/14/2015 Influenza, Quadrivalent, Adj uvanted, Preservative Free 04/14/2023 Influenza, Unspecified 04/10/2013,2010,03/03/2008,2007,07/30/2006,04/18/2004 PCV13 02/17/2020 PPSV23 03/24/2021,07/26/2009 RZV (SHINGRIX) 03/24/2021,02/17/2020 SARS-COV-2 (COVID-19) - MODE RNA BIVALENT(Discontinued) 03/23/2022 SARS-COV-2 (COVID-19) - MODERNA(Discontinued) 10/06/2021,03/31/2021,08/05/2020,2020 Td (Adult), adsorbed 07/21/2007 Tdap 06/29/2016 influenza trivalent high dos e (HD)(PF) 02/08/2025,02/20/2024 influenza vaccine quad (FLUZONE/FLUARIX) (6 months and older)(PF) 04/14/2018,03/09/2017 Family History Medical History Relation Name Comments Thyroid disease Brother Father Had thyroid surgery Heart failure Father Mayank Hyperlipidemia (high cholesterol) Father Mayank Hypertriglyceridemia Dysphagia Mother Kenyatta Glaucoma Mother Kenyatta Hyperthyroidism Mother Kenyatta Neurological disorder Mother Kenyatta Colon cancer Sister 1 Ovarian cancer Sister 1 Breast cancer (in one breast) Sister 2 Alexa Stein 2008 Colon cancer Sister 2 Alexa Stein 2008 Ovarian cancer Sister 2 Alexa Stein Relation Name Status Comments Brother Father Father Mayank Mother Kenyatta (Age 74) Sister 1 Sister 2 Alexa Stein (Age 58) Social History Tobacco Use Types Packs/Day Years Used Date Smoking Tobacco: Never Smokeless Tobacco: Never Tobacco Cessation:Counseling Given: Not Answered Alcohol Use Standard Drinks/Week Comments Never 0 (1 standard drink = 0.6 oz pur e alcohol) [facility] Utilities Answer Date Recorded In the past [...] your living situation today? [facility] a [facility] place [facility] live 07/31/2024 Education Answer Date Recorded What is the highest level of school you have completed or the highest degree you have received? 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 Gender Identity Male 08/25/2020 8:32 PM CDT Sexual Orientation Straight 08/25/2020 8: 32 PM CDT Occupation Industry Job Start Date Job End Date Not on file Not on file Not on file Not on file Last Filed Vital Signs Vital Sign Reading Time Taken Comments Blood Pressure 113/67 02/08/2025 2:[address] rage Pulse 75 02/08/2025 2:38 PM CDT Temperature 36.7 C (98.1 F) 02/08/2025 2:38 PM CDT Respiratory Rate 16 02/08/2025 2:38 PM CDT Oxygen Saturation 94% 05/09/2022 2:56 PM [employer] 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 Inhaled Oxygen Concentration - - Weight 98.3 kg (216 lb 11.4 oz) 02/08/2025 2:38 PM CDT Height 185 cm (6' 0.84) 12/25/2022 9:39 AM CDT Body Mass Index 28.72 12/25/2022 9:39 AM CDT Plan of Treatment Health Maintenance Due Date Last Done Comments CT Colonography 1955 Cologuard 1955 RSV vaccine - (32-36 weeks) or 50+ years (1 - Risk 50-74 years 1-dose series) 09/13/2003 COVID-19 Vaccine ( season) 2025 02/20/2024, 04/14/2023, 03/23/2022, Additional history exists Visit: Chronic Disease, age 18+ 08/06/2025 08/06/2024 Fasting Glucose for Diabetes Screening 10/22/2025 10/22/2024, 03/22/2024, 03/17/2024, Additional history exists Office Visit for Blood Pressure Check / Re-check 02/08/2026 02/08/2025 Visit: Medicare Annual Wellness 02/08/2026 12/25/2022 Postponed from 12/27/2023 (Patient Refused) DTaP,Tdap,and Td Vaccines (2 - Td or Tdap) 06/29/2026 06/29/2016, 07/21/2007 Lipid (Cholesterol) Screening 12/03/2028 12/04/2023, 08/28/2023, 02/25/2023, Additional history exists Colonoscopy 04/27/2029 04/27/2019, 02/25, 03/19/2016, Additional history exists Colorectal Cancer Surveillance 04/27/2029 Hepatitis C Screening Completed 01/21/2017 Pneumococcal vaccine (50+ years) Completed 03/24/2021, 02/17/2020, 07/26/2009 Zoster Vaccines Completed 03/24/2021, 02/17/2020 Depression Screening (Annual PHQ-2) Completed 08/06/2024, 07/31/2024 Fall Risk Screen (Annual) Completed 08/06/2024 Influenza Vaccine Completed 02/08/2025, , 04/14/2023, Additional history exists HPV Vaccines Aged Out No longer eligi ble based on patient's age to complete this topic IPV Vaccines Aged Out No longer eligi ble based on patient's age to complete this topic Medical Devices Implanted Type Area Ultrasound Technologist Sonographer Device Identifier Shelf Expiration Date Model / Serial / Lot Slng Vrt Ureth Virtue - [id number] Implanted:Qty: 1 on 07/13/2021 by Rodrick Landon M.D., M.P.H. at [facility] Artificial Sphincter N/A: Scrotum Coloplast 12/29/2022 [id number] / / [id number] Femoral Head - [id number] Implanted:Qty: 1 on 03/18/2015 Bone or Tissue Other/Legacy - See Implant Description [employer] Description:Device Manufactu rer - [employer]. Body Location - Other. spine fusion. Device Status Text - [id number]. Femoral Head - Rojo [id number] Implanted:Qty: 1 on 03/18/2015 Bone or Tissue Other/Legacy - See Implant Description [employer] Description:Device Manufactu rer - [employer]. Body Location - Other. spine fusion. Device Status Text - [id number]. Conversions - Default Historical Implant Device Implanted:02/24 (Quantity not on file) Hardware e.g. pins/screws/ rods Description:Device Status Te xt - Hardware. Mesh Or Patch Mesh or Patch Abdomen Description:2008-Hernia repa ir with mesh. Penile Assy Kt Ttn Std 30 - [id number] Implanted:Qty: 1 on 07/13/2021 by Rodrick Landon M.D., [facility]P.H[facility] Penile Implant N/A: Scrotum Coloplast 01/19/2026 [id number] / / [id number] Description:MR conditional Penile Resvr Ttn Cl W/Lo 125ml - [id number] Implanted:Qty: 1 on 07/13/2021 by Rodrick Landon M.D., M.P.H. at [facility] Penile Implant N/A: Scrotum Coloplast 03/05/2026 [id number] / / [id number] Description:MR conditional [email or web address] Penile Ipp Ttn Testclr 22 - [id number] Implanted:Qty: 1 on 07/13/2021 by Rodrick Landon M.D., M.P.H. at [facility] Penile Implant N/A: Penis Coloplast 12/22/2025 [id number] / / [id number] Description:MR conditional [email or web address]/[email or web address] Legacy Enoc 5.5 X 500mm - [id number] Implanted:Qty: 1 on 03/18/2015 Spine Implant Medtronic Description:Device Manufactu rer - Medtronic Sofamor [place]. Device Status Text - [id number]. Screw 5.5 Multi-Axial 7.5 X 45mm Ti - Rojo [id number] Implanted:Qty: 4 on 03/18/2015 Spine Implant Medtronic Description:Device Manufactu rer - Medtronic Sofamor [place]. Device Status Text - [id number] [id number]. Screw 5.5 Multi-Axial 6.5 X 45mm Ti - Rojo [id number] Implanted:Qty: 6 on 03/18/2015 Spine Implant Medtronic Description:Device Manufactu rer - Medtronic Sofamor [place]. Device Status Text - [id number] [id number]. Screw 5.5 Multi-Axial 5.5 X 50mm Ti - Rojo [id number] Implanted:Qty: 2 on 03/18/2015 Spine Implant Medtronic Description:Device Manufactu rer - Medtronic Sofamor [place]. Device Status Text - SPINE [id number]. Screw 5.5 Multi-Axial 4.5 X 45mm Ti - Rojo [id number] Implanted:Qty: 1 on 03/18/2015 Spine Implant Medtronic Description:Device Manufactu rer - Medtronic Sofamor [place]. Device Status Text - SPINE [id number]. Screw 5.5 Multi-Axial 6.5 X 50mm Ti - Rojo [id number] Implanted:Qty: 1 on 03/18/2015 Spine Implant Medtronic Description:Device Manufactu rer - Medtronic Sofamor [place]. Device Status Text - [id number] [id number]. Legacy Screw Set Ti Jeniferkoff Hex 5.0 - Rojo [id number] Implanted:Qty: 14 on 03/18/2015 Spine Implant Medtronic Description:Device Manufactu rer - Medtronic Sofamor [place]. Device Status Text - SPINE [id number]. Explanted Type Area Ultrasound Technologist Sonographer Device Identifier Shelf Expiration Date Model / Serial / Lot Conversions - Default Historical Implant Device Implanted:03/11 (Quantity not on file) Explanted:Qty: 1 on 07/13/2021 by Rodrikc Landon M.D., M.P.H. at [facility] Artificial Sphincter Description:Device Status Te xt - DANIELA. Conversions - Default Historical Implant Device Implanted:03/11 (Quantity not on file) Explanted:Qty: 1 on 07/13/2021 by Rodrick Landon M.D., M.P.H. at [facility] Penile Implant Penis Description:Device Status Te xt - PenileImp. AMS CX 700 Conversions - Default Historical Implant Device Implanted:02/11 (Quantity not on file) Explanted:03/18 (Quantity not on file) Stimulator Other Spine Lumbar Description:Device Status Te xt - StimOther. Procedures Procedure Name Priority Date/Time Associated Diagnosis Comments LIPID PANEL, S Routine 12/04/2023 8:38 AM CDT Hyperlipidemia GLUCOSE, FASTING, S/P Routine 08/28/2023 8:53 AM CDT Screening Examination Diabetes Mellitus HCV AB SCRN W/REFLEX TO HCV PCR, S Routine 01/21/2017 9:30 AM CDT COLONOSCOPY Routine 03/19/2016 from Last 3 Months or Most Recently Relevant to Health Maintenance Results * (ABNORMAL) Lipid Panel (12/04/2023 8:38 AM CDT) Triglycerides 262(H) mg/dL 12/04/2023 1:54 PM CDT [facility] Comment: ----REFERENCE VALUE---- Normal: <150 mg/dL Borderline High: 150-199 mg/dL High: 200-499 mg/dL Very High: > or =500 mg/dL Cholesterol, Total 111 mg/dL 2023 1:54 PM CDT [facility] Comment: ----REFERENCE VALUE---- Desirable: < 200 mg/dL Borderline High: 200 - 239 mg/dL High: > or = 240 mg/dL Cholesterol, LDL, Calculated 41 mg/dL 12/04/2023 1:54 PM CDT [facility] Comment: ----REFERENCE VALUE---- Desirable: <100 mg/dL Above Desirable: 100-129 mg/dL Borderline High: 130-159 mg/dL High: 160-189 mg/dL Very High: >=190 mg/dL ----ADDITIONAL INFORMATION---- LDL cholesterol calculated using the Sawyer/NIH equation. Cholesterol, HDL 29(L) >=40 mg/dL 12/04/19 1:54 PM CDT [facility] Cholesterol, Non-HDL, Calculated 82 mg/dL 12/04/2023 1:54 PM CDT [facility] Comment: ----REFERENCE VALUE---- Desirable: <130 mg/dL Above Desirable: 130-159 mg/dL Borderline High: 160-189 mg/dL High: 190-219 mg/dL Very High: > or =220 mg/dL Fasting (8 HR or more) Yes 12/04/2023 8:49 AM CDT [facility] Blood (Blood, Venous) 12/04/2023 8:38 AM CDT 12/04/2023 1:10 PM CDT us Alba Astudillo D.O. LAB BLOOD ADD-ON Shirin l Result [facility] [address] [place] [address], [facility] [place] [address] [place] [address] * Glucose, Fasting (08/28/2023 8:53 AM CDT) Pathologist [facility] Glucose, P 100 70 - 100 mg/dL 08/28/2023 2:06 PM CDT [facility] Last Intake 12 hr 08/28/2023 1:20 PM CDT [facility] Blood (Blood, Venous) 08/28/2023 8:53 AM CDT 08/28/2023 1:20 PM CDT us Alba Astudillo D.O. LAB BLOOD NON ADD-ON Final Result [facility] [address] [place] [address], [place] [facility] [place] [address] [place] [address] * HCV AB Scrn w/Reflex to HCV PCR, S (01/21/2017 9:30 AM CDT) Pathologist [facility] HXHCV Ab [facility] Negative Negative POWERCHART Comment: Gfnbmh-kk-bpfiic ratio is <1.00. Test Performed by: [address] [address] Blood 01/21/2017 9:30 AM CDT us Juany Pritchett M.D. LAB MICROBIOLOGY - BLOOD ORDERAB LES Edited Result - Final Performing Organization Address City/[facility]/ZIP Co de Phone Number POWERCHART NA * Colonoscopy (03/19/2016) Pathologist [facility] EXT Colonoscopy Normal - See Scanned Report for Details Normal - See Scanned Report for Details, HIMS - Report Received and Scanned Anatomical Region Laterality Modality Endoscopy us Historical Provider GI PROCEDURE ORDERABLES Shirin l Result from Last 3 Months or Most Recently Relevant to Health Maintenance Insurance MEDICARE MEDICARE MEDICA S RAJESH Menjivar [id number] [employer] RAJESH Tsai [id number] [employer] Advance Directives For more information, please contact: [phone] * Full Code (Latest Code Status on File) Date Activated Date Inactivated Comments 07/13/2021 3:11 PM 07/14/2021 1:43 PM Question Answer Comments Full Code: Not Discussed Due to: Patient not available Care Teams Furnace Installer Relationship Specialty Start Date End Date Loretta Mcclellan P.A.-C. [address] [place] [address] RAJESH Perez [phone] PCP - General 07/15/24
--- OUTSIDE RECORDS SUMMARY | 2025-04-06 12:26 | XMS_ITS | Continuity of Care Document ---
Author Organization [facility], [facility] Address [address] [place] [address] Care Team Providers Care Corrosion Control Technician Name Role Phone [facility] Primary Care Provider Assessment No assessment recorded. Plan of Treatment Reminders Order Date Submit Date Provider Last Modified By Organization Details Last Modified Time Details Appointments None recorded. Lab None recorded. 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 2024 025 [email or web address] 4 [facility], [address], [place], [address], 5 15:27:41 Procedures None recorded. Surgeries None recorded. Imaging None recorded. Medication Orders None recorded. Patient TargetsNo targets recorded. Patient Instructions Encounter Date Encounter Id Patient Instructions Last Modified By Organization Details Last Modified Time 03/05/2025 [id number] Juan Pablo has increasing lung burden of [...] Abnormal Flag Note LastModifiedBy Organization Detail LastModifiedTime 02/04/2002/03/2025 CT, abdom en + pelvi s, w/o contr ast No observ ation record ed. [facility] (Radiology) [address] [place] [address], [id number], 02/03/2025 17:28:04 02/06/2002/05/2025 fluor oscop y (PROC ) No observ ation record ed. Not Available 10:37:36 03/20/20 25 03/19/2025 anteg rade nephr ostog luis daniel and/o r urete rogra m, injec tion proce dure (PROC ) No observ ation record ed. [facility] [address], [place], [address], 03/22/2025 15:27:31 Result Notes None recorded. 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 Carlos Eduardo marroquin MD [address] [place] [address],[address] [place] [address], [phone], [facility] 4 09:26:24 Metastatic malignant neoplasm to liver 70073140 Active 2023 Carlos Eduardo marroquin MD [address] [place] [address],[address] [place] [address], [phone], [facility] 4 09:30:57 Metastatic malignant neoplasm to lung 21931354 Active 2023 Carlos Eduardo marroquin MD [address] [place] [address],[address], [place], [phone], [facility] 4 09:34:13 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 8824766371358 00 Active 2024 Carlos Eduardo marroquin MD [address] [place] [address],[address], [place], [address], [facility] 5 16:51:26 Hydronephro sis 42434207 Active 2024 Carlos Eduardo marroquin MD [address] [place] [address],[address] [place] [address], [phone], [facility] 5 08:52:13 Ureteric pain 167065186 Active 2024 Carlos Eduardo marroquin MD [address] [place] [address],[address] [place] [address], [phone], [facility] 5 13:09:07 Stricture of ureter 43302905 Active 2024 Carlos Eduardo marroquin MD [address] [place] [address],[address] [place] [address], [phone], [facility] 5 10:15:27 Lower urinary tract symptoms due to benign prostatic hypertrophy 0337384500987 1 Active 2024 Carlos Eduardo marroquin MD [address] [place] [address],[address] [place] [address], [phone], [facility] 5 16:56:24 Right flank pain 453289384 Active 2024 Carlos Eduardo marroquin MD [address] [place] [address],[address] [place] [address], [phone], [facility] 5 09:05:37 Spasm of urinary bladder 477518348 Active 2024 Carlos Eduardo marroquin MD [address] [place] [address],[address] [place] [address], [phone], [facility] 5 13:56:41 Problem Notes None recorded. Procedures Surgical History Date Name Laterality Status Provider Name and Address Organization Details Recorded Time 03/05/20 25 COMPLEX VISIT completed Carlos Eduardo Marks MD [address], [place], [address], [facility] 03/05/2025 13:56:05 08/13/19 25 CYSTOSCOPY WITH URETERAL STENT EXCHANGE (SURG) completed Joannamy Rae [facility] 08/14/2024 15:14:30 04/06/20 24 ureterostomy completed Corinnaelvi Pugh [facility] 04/28/2024 10:56:42 04/27/20 19 [facility] 10:57:39 Imaging Results None recorded. Procedure Notes None recorded. Medical Equipment None Reported. Allergies Allergen ID Allergen Name Allergen Category Reaction Reaction Severity Criticality Documentation Date Start Date Code Code System Note Provider Name and Address Organization Details Recorded Time 365207 adhesive tape environme nt,medica tion Not available Not available Not available 09/17/2024 Rhonda ramos [facility] 14:46:57 105532 Adhesive agent (substanc e) environme nt,medica tion rash Not available Not available 03/20/20252024 02388 0007 SNOMED Not Available roshan - External [...] Updated DateTime 03/05/2025 185.42 cm 28.4 kg/m2 65527.36 g Kaylyn Mathis [place] [facility] [place] [facility] 03/05/2025 09:42:08 Social History Question Answer Notes LastModified by Organizat ion Details LastModified Time Tobacco Smoking Status Never Smoker Corinna Ballrock [facility] 04/28/2024 10:56:25 Do You Have An Advance Directive? Yes Information not available 09/17/2024 What Is Your Level Of Caffeine Consumption? None Information not available 04/28/2024 Race White Information no t available 09/17/2024 Ethnicity Not /Lat rohan Information not available 09/17/2024 Preferred Language Gambian Information not available 09/17/2024 Do You Have A Medical Power Of Marker Machine Attendant? Yes Information not available 09/17/2024 What Was [...] High Blood Pressure Y Kidney Stones N Depression N Lung Disease N GERD/Acid Reflux N Sexually Transmitted Infection N Cancer Y High Cholesterol Y Diabetes N Bleeding Disorder N Heart Disease N Immunizations Vaccine Type Date Status Note Provider Nam e and Address Organization Details Recorded Time Influenza, split virus, trivalent, preservative 4 completed Not Available [facility] 03/05/2025 09:27:51 Influenza, split virus, trivalent, preservative 7 completed Not Available [facility] 03/05/2025 09:27:51 Influenza, split virus, trivalent, preservative 8 completed Not Available [facility] 03/05/2025 09:27:51 Td (adult), 5 Lf tetanus toxoid, preservative free, adsorbed 8 completed Not Available [facility] 03/05/2025 09:27:51 Influenza, split virus, trivalent, preservative 8 completed Not Available [facility] 03/05/2025 09:27:51 pneumococcal polysaccharide PPV23 0 completed Not Available [facility] 03/05/2025 09:27:51 influenza, unspecified formulation 1 completed Not Available [facility] 03/05/2025 09:27:51 influenza, unspecified formulation 3 completed Not Available [facility] 03/05/2025 09:27:51 Influenza, split virus, quadrivalent, preservative 5 completed Not Available [facility] 03/05/2025 09:27:51 Tdap 7 completed Not Available [facility] 03/05/2025 09:27:51 Influenza, split virus, quadrivalent, PF 7 completed Not Available [facility] 03/05/2025 09:27:51 Influenza, split virus, quadrivalent, PF 8 completed Not Available [facility] 03/05/2025 09:27:51 zoster recombinant 0 completed Not Available [facility] 03/05/2025 09:27:51 Pneumococcal conjugate PCV 13 0 completed Not Available [facility] 03/05/2025 09:27:51 Influenza, high-dose, quadrivalent, PF 0 completed Not Available [facility] 03/05/2025 09:27:51 COVID-19, mRNA, LNP-S, PF, 100 mcg/0.5mL dose or 50 mcg/0.25mL dose 1 completed Not Available [facility] 03/05/2025 09:27:51 COVID-19, mRNA, LNP-S, PF, 100 mcg/0.5mL dose or 50 mcg/0.25mL dose 1 completed Not Available [facility] 03/05/2025 09:27:51 Influenza, high-dose, quadrivalent, PF 1 completed Not Available [facility] 03/05/2025 09:27:51 pneumococcal polysaccharide PPV23 1 completed Not Available [facility] 03/05/2025 09:27:51 zoster recombinant 1 completed Not Available [facility] 03/05/2025 09:27:51 COVID-19, mRNA, LNP-S, PF, 100 mcg/0.5mL dose or 50 mcg/0.25mL dose 1 completed Not Available [facility] 03/05/2025 09:27:51 COVID-19, mRNA, LNP-S, PF, 100 mcg/0.5mL dose or 50 mcg/0.25mL dose 2 completed Not Available [facility] 03/05/2025 09:27:51 COVID-19, mRNA, LNP-S, bivalent, PF, 50 mcg/0.5 mL or 25mcg/0.25 mL dose 2 completed Not Available [facility] 03/05/2025 09:27:51 Influenza, high-dose, quadrivalent, PF 2 completed Not Available [facility] 03/05/2025 09:27:51 Influenza, adjuvanted, quadrivalent, PF 3 completed Not Available [facility] 03/05/2025 09:27:51 COVID-19, mRNA, LNP-S, PF, noel-sucrose, 30 mcg/0.3 mL 3 completed Not Available [facility] 03/05/2025 09:27:51 COVID-19, mRNA, LNP-S, PF, noel-sucrose, 30 mcg/0.3 mL 4 completed Not Available [facility] 03/05/2025 09:27:51 Influenza, high-dose, trivalent, PF 4 completed Not Available [facility] 03/05/2025 09:27:51 Influenza, high-dose, trivalent, PF 5 completed Not Available [facility] 03/05/2025 09:27:51 Past Encounters Encounter ID Performer Location Encounter Start Date Encounter Closed Date Diagnosis/Indication Diagnosis SNOMED-CT Code Diagnosis ICD10 Code Diagnosis IMO Codes Diagnosis Note [id number] Carlos Eduardo Marks MD [facility] [address] 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 43663148 C78.7 Lower urin lorene tract symptoms 785016924 R39.9 9518218 Hydronephrosis 94611880 N13.30 051390 Spasm of u rinary bladder 965180628 N32.89 [id number] Health Concerns Section Related Observation LastModified by Organization Detai ls LastModified Time None Recorded Concern Status LastModified by Organization Details LastModified Time None Recorded Payers Encounter Date Sequence Insurance Name Policy Number Policy Connor Covered Member ID Connor Member ID Guarantor Name 03/05/2025 2 [place]: [employer] Juan Pablo Bernstein [id number] Jua nPablo Bernstein 03/05/2025 1 MEDICA - PRIME SOLUTION (MEDICARE REPLACEMENT/A DVANTAGE - HMO) Juan Pablo Bernstein [id number] Juan Pablo Bernstein Notes Date Note Type Note Provider Name and Address Organization Details Recorded Time 03/05/2025 text/html 69M presents for follow up [...] frequency, urgency, leakage. Carlos Eduardo Marks MD [address], [place], [address], [facility] 03/05/2025 14:08:38
--- OUTSIDE RECORDS SUMMARY | 2025-04-06 12:26 | XMS_ITS | Clinical Summary ---
Author Organization [employer] [facility] [employer] [employer] Address [address] [place] [id number] Care Team Providers Care Software Design Engineer Name Role Phone Yarely Macielashawn MBBS Unavailable Loretta Mcclellan PA-C Primary Care Provider [phone] Allergies Active Allergy Reactions Criticality Noted Date Comments Adhesive Tape Rash 07/05/2008 Medications amitriptyline (ELAVIL) 50 mg tablet Take 50 mg by mouth at bedtime. Active sennosides (SENOKOT) 8.6 mg tablet Take 8.6 mg by mouth once daily if needed for Constipation. Active rosuvastatin (CRESTOR) 20 mg tablet Take 20 mg by mouth once daily. Active cyanocobalami n (Vitamin B-12) 500 mcg tablet Take 500 mcg by mouth once daily. Active triamcinolone (ARISTOCORT; KENALOG) 0.1 % cream Apply topically to affected area(s). Active tolterodine (DETROL LA) 2 mg Extended-Rele ase capsuleIndica tions:Metasta tic urothelial carcinoma (HC) Take 1 Capsule (2 mg) by mouth once daily. 30 Capsule 5 12:45 PM CDT 02/06/20 25 Active acetaminophen (TYLENOL EXTRA STRGTH) 500 mg tablet Take 500 mg by mouth four times daily. Max acetaminophen dose: 4000mg in 24 hrs. Active DULoxetine (CYMBALTA) 30 mg Delayed-relea se capsule Take 30 mg by mouth once daily. Active gabapentin (NEURONTIN) 600 mg tablet Take 600 mg by mouth three times daily. Active vibegron (GEMTESA) 75 mg tablet Take 75 mg by mouth once daily. Swallow tablet whole. May be crushed and mixed in applesauce. Follow with glass of water. Active tamsulosin 0.4 mg capsule Take 0.8 mg by mouth once daily after a meal. Active traMADoL (ULTRAM) 50 mg tablet Take 50-100 mg by mouth every 6 hours. Active NIFEdipine ER (ADALAT CC) 60 mg extended-rele ase tablet Take 60 mg by mouth once daily before a meal. Active multivitamin (MVI) tablet Take 1 Tablet by mouth once daily. Active propranoloL 20 mg tablet Take 20 mg by mouth three times daily. Active polyethylene glycol (MIRALAX; GLYCOLAX) 17 g per packet packet Mix 1 Packet in liquid then take by mouth once daily if needed for Constipation. Active sodium chloride 0.9% syringeIndica tions:Hydrone phrosis Irrigate 10 mL to affected area each time if needed (flush if no output or output is grossly bloody) for up to 10 doses. 10 mL 5 3:23 PM CDT 03/20/20 25 Active HYDROmorphone 2 mg tabletIndicat ions:Metastat ic urothelial carcinoma (HC),Right flank pain Take 1 to 2 Tablets (2-4 mg) by mouth every 6 hours if needed for Pain. 14 Tablet 5 3:26 PM CDT 03/27/20 25 Active MULTI-VITAMIN ORAL take 1 by oral route once a day 025 Discontinued( Pharmacist change per medication history (E-cancel not sent)) FLUoxetine (PROZAC) 20 mg capsule Take 20 mg by mouth every morning. 025 Discontinued( Pharmacist change per medication history (E-cancel not sent)) gabapentin (NEURONTIN) 300 mg capsule Take 300 mg by mouth three times daily. 025 Discontinued( Pharmacist change per medication history (E-cancel not sent)) propranoloL (INDERAL) 20 mg tablet Take 20 mg by mouth 2 times daily if needed (HR >145 or BP >120/80). 025 Discontinued( Pharmacist change per medication history (E-cancel not sent)) tamsulosin 0.4 mg capsuleIndica tions:Hydrone phrosis of right kidney Take 1 Capsule (0.4 mg) by mouth once daily after a meal. 30 Capsule 4 3:03 PM DIRECTOR OF SLEEP 04/06/20 24 025 Discontinued( Pharmacist change per medication history (E-cancel not sent)) NIFEDIPINE ORAL Take by mouth. 025 Discontinued( Pharmacist change per medication history (E-cancel not sent)) polyethylene glycol 3350 (MIRALAX ORAL) Take by mouth. 025 Discontinued( Pharmacist change per medication history (E-cancel not sent)) ACETAMINOPHEN ORAL Take by mouth. 025 Discontinued( Pharmacist change per medication history (E-cancel not sent)) ONDANSETRON ORAL Take by mouth. 025 Discontinued( Pharmacist change per medication history (E-cancel not sent)) PROCHLORPERAZ INE MALEATE ORAL Take by mouth. 025 Discontinued( Pharmacist change per medication history (E-cancel not sent)) OLANZAPINE ORAL Take by mouth. 025 Discontinued( Pharmacist change per medication history (E-cancel not sent)) CALCIUM CARB, CITRATE, MALATE ORAL Take by mouth. 025 Discontinued( Pharmacist change per medication history (E-cancel not sent)) tramadol HCl (TRAMADOL ORAL) Take 50 mg by mouth. 025 Discontinued( Pharmacist change per medication history (E-cancel not sent)) tamsulosin 0.4 mg capsuleIndica tions:Metasta tic urothelial carcinoma (HC) Take 1 Capsule (0.4 mg) by mouth once daily after a meal. 30 Capsule 5 12:45 PM CDT 02/06/20 25 025 Discontinued( Pharmacist change per medication history (E-cancel not sent)) vibegron (GEMTESA ORAL) Take by mouth. 025 Discontinued( Pharmacist change per medication history (E-cancel not sent)) Active Problems Problem Noted Date Diagnosed Date Cough 03/19/2025 Ureteral stricture 02/05/2025 Lung mass 11/16/2024 Metastatic urothelial carcinoma 03/26/2024 Lung nodules 03/20/2024 Mediastinal adenopathy 03/20/2024 Acute hypoxemic respiratory failure 03/18/2024 Degeneration of lumbar or lumbosacral interverte bral disc 03/09/2009 Overview (03/09/2009): S/p multiple surgical procedures Spinal stenosis, lumbar elise on, without neurogenic claudication 03/09/2009 Hypertension 03/09/2009 Hypercholesterolemia 03/09/2009 Neurogenic bladder 03/09/2009 Neurogenic bowel 03/09/2009 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 Overview (03/09/2009): Resulting neurogenic bladder and bowel Complete loss of LE sensation 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 07/05 Resolved Problems Problem Noted Date Diagnosed Date Resolved Date Spinal Stenosis of Lumbar Region L2/3 03/09/2009 03/09/2009 Encounters Date Type Department Care Team Description 03/27/2025 11:41 AM CDT - 03/27/2025 2:57 PM CDT Emergency [facility] Emergency Department [address] [place] [id number] Joe Poole MD Metastatic urothelial carcinoma (HC) (Primary Dx); Right flank pain; H/O insertion of nephrostomy tube Discharge Disposition: Home Self Care 03/27/2025 Travel 03/26/2025 9:19 AM CDT Anesthesia Event [facility] [address] [place] [id number] Agustín Stone MD Oleson, Kristiana Marie [facility] 03/26/2025 8:30 AM CDT - 03/26/2025 9:23 AM CDT Surgery [facility] [address] [place] [address] Brandon Jiménez MD CYSTOSCOPY RIGHT STENT REMOVAL 03/26/2025 6:40 AM CDT - 03/26/2025 10:51 AM CDT Hospital Encounter [facility] [address] [place] [address] 8[address] Brandon Jiménez MD Discharge Disposition: Home Self Care 03/25/2025 Travel 03/19/2025 11:11 AM CDT - 03/20/2025 5:00 PM CDT Hospital Encounter [facility] [address] [place] [address]73 Carlos Eduardo Marks MD Ramsey, MD Janine Crews, ARIADNE Wharton Hydronephrosis Discharge Disposition: Home Self Care 03/19/2025 Travel 03/18/2025 Telephone [facility] [address] [place] [address]201 Nidia Bowser RN ANW IR pre-procedure phone call 03/11/2025 Telephone [facility] [address] [place] [address] 701[address] Nidia Bowser RN ANW IR pre-procedure readines 03/08/2025 Orders Only [facility] [address] [place] [address] Maranda Washington 1 scan: R PNC 02/09/2025 Lab Requisition [facility] [phone] Foreign Zhou MD 02/05/2025 11:15 AM CDT Anesthesia Event [facility] [address] [place] [address] [phone] Diana Torres MD Strigenz, Nick Treadwell MD 02/05/2025 11:00 AM CDT - 02/05/2025 12:14 PM CDT Surgery [facility] [address] [place] [address] 42196 Ryan Dong MD CYSTOSCOPY, RIGHT RETROGRADES, URETEROPYELOGRAM WITH RIGHT STENT PLACEMENT 02/05/2025 9:04 AM CDT - 02/05/2025 1:00 PM CDT Hospital Encounter [facility] [address] [place] [address] 74143 Ryan Dong MD Metastatic urothelial carcinoma (HC) (Primary Dx) Discharge Disposition: Home Self Care 02/05/2025 Travel 02/03/2025 11:30 AM CDT Ancillary Procedure [facility] [address] [place] [address] 02/02/2025 Travel 02/02/2025 Transcribe Orders Customer [facility] [phone] Frida Baez NP 01/12/2025 1:13 PM CDT - 01/12/2025 11:59 PM CDT Hospital Encounter [facility] [address] [place] [address] Foreign Zhou MD Encounter for follow-up surveillance of urothelial carcinoma of upper urinary tract 01/12/2025 Travel from Last 3 Months Immunizations Immunization Administration Dates Next Due Tdap 06/29/2016 Social History Tobacco Use Types Packs/Day Years Used Date Smoking Tobacco: Never Alcohol Use Standard Drinks/Week Comments Never 0 (1 standard drink = 0.6 oz pur e alcohol) Social Connections Answer Date Recorded Do you often feel lonely or isolated from those around you? 0 03/18/2024 Alcohol Use Answer Date Recorded How often do you have a drink containing alcohol ? 0 02/03/2025 Average Number of Drinks Not on file 025 Frequency of Binge Drinking Not on file 01/25 Financial Resource Strain Answer Date R ecorded Difficulty of Paying Living Expenses 3 03/18/2024 Difficulty of Paying Living Expenses Not on file 03/18/2024 Food Insecurity Answer Date Recorded Do you worry your food will run out before you are able to buy more? 1 03/18/2024 Transportation Needs Answer Date Record ed Does lack of transportation keep you from medica l appointments? 1 03/18/2024 Does lack of transportation keep you from work, meetings or getting things that you need? 1 03/18/2024 Housing Stability Answer Date Recorded What is your housing situation today? 1 03/18/2024 Interpersonal Safety Answer Date Record ed Are you being hit, kicked, p ushed or yelled at (see row info)? Unable to assess, family/SO in room. 10/22/2024 Interpersonal Safety Abuse 12 - 18 Not on file 10/22/2024 Interpersonal Safety Ambulat ory Vulnerability Not on file 10/22/2024 Utilities Answer Date Recorded Do you have trouble paying f or utilities (for example, heat, electricity, water, phone)? 1 03/18/2024 Sex and Gender Information Value Date Recorded Sex Assigned at Not on file Legal Sex Male 6:10 AM DIRECTOR OF SLEEP Gender Identity Not on file Sexual Orientation Not on file Obstetrics History Last Filed Vital Signs Vital Sign Reading Time Taken Comments Blood Pressure 151/78 03/27/2025 11:38 AM CDT Pulse 72 03/27/2025 11:38 AM CDT Temperature 36.7 C (98 F) 03/27/2025 11:38 AM CDT Respiratory Rate 20 03/27/2025 11:38 AM CDT Oxygen Saturation 94% 03/27/2025 11:38 AM CDT Inhaled Oxygen Concentration - - Weight 98.4 kg (217 lb) 03/27/2025 11:38 AM CDT Height 188 cm (6' 2) 03/27/2025 11:38 AM CDT Body Mass Index 27.86 03/27/2025 11:38 AM CDT Plan of Treatment Health Maintenance Due Date Last Done Comments Depression screening for age 12+ 1965 Hepatitis C screening for ag e 18-79 09/13/1971 Pneumococcal series for age 50+ (1 of 2 - PCV) 1972 Zoster (shingles) series for age 50+ (1 of 2) 1972 Lipids for age 45-75 1998 RSV vaccine for adults or (1 - Risk 60-74 years 1-dose series) 2013 Medicare Wellness for age 65+ 2018 Influenza Vaccine (#1) 2025 BMI (ht and wt on same day) for age 18+ 10/21/2025 10/21/2024, 10/15/2024 Colonoscopy through age 75 03/19/2026 03/19/2016 Tetanus booster 06/29/2026 06/29/2016 Hepatitis B series for 19+ Aged Out N o longer eligible based on patient's age to complete this topic Medical Devices Implanted Type Area Abrading Machine Tender Device Identifier Shelf Expiration Date Model / Serial / Lot Enoc 8.0cmx5.5mm Pre-Cut - [id number] Implanted:Qty: 2 on 03/09/2009 at [facility] Spine Implants N/A: Spine SOF[employer]ANEK [id number]# / / Accessory Kit Implanted:Qty: 1 on 07/05/2008 at [facility] Explanted:at [facility] (Quantity not on file) [facility] [place] [id number] / [id number] / Description:ACCESSORY KIT Blln Urinary Sphinct [facility] - [id number] Implanted:Qty: 1 on 07/05/2008 at [facility] Explanted:at [facility] (Quantity not on file) Penis [employer] 06/03/2013 [id number]# / [id number] / Ams S.T Cuff With Iz Implanted:Qty: 1 on 07/05/2008 at [facility] Explanted:at [facility] (Quantity not on file) Penis [employer] 05/17/2010 [id number] / [id number] / Control Pump With Iz Implanted:Qty: 1 on 07/05/2008 at [facility] Explanted:at [facility] (Quantity not on file) Penis [employer] 06/02/2010 [id number] / [id number] / Accessory Kit Implanted:Qty: 1 on 07/05/2008 at [facility] Penis [employer] [id number] / / [id number] Description:ACCESSORY KIT [place] 65ml - [id number] Implanted:Qty: 1 on 07/05/2008 at [facility] Explanted:at [facility] (Quantity not on file) Penis [employer] [id number]# / [id number] / 700cx,Ms Pump Preconnect,Iz [[id number] Implanted:Qty: 1 on 07/05/2008 at [facility] Explanted:at [facility] (Quantity not on file) Penis [employer] [id number] / [id number] / Ams Implanted:Qty: 1 on 07/05/2008 at [facility] Penis [employer] [id number] / / [id number] Description:ASM NO CHARGE Cnnctr Tsrh Tc 5.5mm Sm Titnm - [id number] Implanted:Qty: 2 on 03/09/2009 at [facility] N/A: Spine [employer] [id number]# / / Screw Ti 5.5x45 Short Post Tsrh-3d - [id number] Implanted:Qty: 2 on 03/09/2009 at [facility] N/A: Spine SOF[employer]OR [employer]ANEK [id number]# / / Cnnctr Tsrh-3d 5.5 Sm Titnm - [id number] Implanted:Qty: 4 on 03/09/2009 at [facility] N/A: Spine SO[employer] [id number]# / / Screw Lock 32 Flush Break Ti - [id number] Implanted:Qty: 4 on 03/09/2009 at [facility] N/A: Spine SO[employer]K [id number]# / / Kit Infuse Lg [id number] - [id number] Implanted:Qty: 1 on 03/09/2009 at [facility] Spine SO[employer]ANEK 02/24/2011 [id number]# / / [id number] [employer] Putty 6cc - [id number] Implanted:Qty: 1 on 03/09/2009 at [facility] Spine SO[employer]ANEK 08/24/2012 [id number]# / / [id number] X Stop 12mm Implanted:Qty: 1 on 03/09/2009 at [facility] Spine [employer] [id number] / / [id number] Description:X Stop 12mm [id number] bone Canclls Crushed 30cc [[id number]] Implanted:Qty: 1 on 03/09/2009 at [facility] Explanted:at [facility] (Quantity not on file) Spine [employer] 09/23/2013 [id number]# / [id number] / Stent Uret [id number] Contour - [id number] Implanted:Qty: 1 on 04/06/2024 by Carlos Eduardo Marks MD at [facility] Right: Ureter [facility] 07/01/2026 [id number] / / [id number] Stent Uret [id number] Contour - [id number] Implanted:Qty: 1 on 02/05/2025 by Ryan Dong MD at [facility] Right: Ureter [facility] 10/15/2027 [id number] / / [id number] Procedures Procedure Name Priority Date/Time Associated Diagnosis Comments CT ABDOMEN PELVIS WO STAT 03/27/2025 12:40 PM CDT EXTRA TUBE CHAPMAN Today 03/27/2025 12:17 PM CDT BASIC METABOLIC PANEL STAT 03/27/2025 12:15 PM CDT CBC W PLT NO DIFF STAT 03/27/2025 12: 15 PM CDT CYSTOSCOPY REMOVAL URETERAL STENT Class E Urgent: within 7 days 03/26/2025 9:00 AM CDT HYDRONEPHROSIS Case Notes C-Arm HEMOGLOBIN Early AM 03/20/2025 5:00 AM CDT BASIC METABOLIC PANEL Early AM 03/20/2025 5:00 AM CDT IR PERCUTANEOUS TUBE PLACEMENT Routine 03/19/2025 4:05 PM CDT Hydronephrosis CREATININE STAT 03/19/2025 11:00 AM CDT PROTIME-INR STAT 03/19/2025 11:00 AM CDT PLATELET COUNT STAT 03/19/2025 11:00 AM CDT HEMOGLOBIN STAT 03/19/2025 11:00 AM CDT LAB TRACKING EVENT Routine 02/09/2025 2: 27 PM CDT PATH-MISC/ANCILLARY TEST Routine 02/09/2025 2:27 PM CDT XR RETROGRADE PYELOGRAM W/WO KUB Routine 02/05/2025 12:01 PM CDT SUPRAGLOTTIC-LMA Routine 02/05/2025 11:3 4 AM CDT CYSTOSCOPY PLACEMENT URETERAL STENT RETROGRADES Class E Urgent: within 7 days 02/05/2025 10:57 AM CDT HYDRONEPHROSIS DUE TO URETERAL STRICTURE SCAN CORRESP-LABORATORY RESULTS 02/04/2025 9:[address] ABDOMEN PELVIS UROGRAM WWO STAT 02/03/2025 12:38 PM CDT Encounter for follow-up surveillance of urothelial carcinoma of upper urinary tract CT CHEST ABDOMEN PELVIS W Routine 01/12/2025 2:14 PM CDT Encounter for follow-up surveillance of urothelial carcinoma of upper urinary tract CREATININE,ISTAT Routine 01/12/2025 1:24 PM CDT COLONOSCOPY 03/19/2016 9:06 AM CDT from Last 3 Months or Most Recently Relevant to Health Maintenance Results * CT Abdomen Pelvis wo IV (Oral contrast NO) (03/27/2025 12:40 PM CDT) Anatomical Region Laterality Modality Abdomen, Pelvis, AORTA, LIVER, SPLEEN Computed Tomography 03/27/2025 1:55 PM CDT Narrative 03/27/2025 1:55 PM CDT For Patients: As a result of the Cures Act, medical imaging exams and procedure reports are released immediately into your electronic medical record. You may view this report before your referring provider. If you have questions, please contact your health care provider. Indication: Right flank pain, no output from right nephrostomy tube placed 1 week prior Technique: Volumetric multidetector CT images of the abdomen and pelvis were without the administration of intravenous contrast. Comparison: CT urogram February 03, 2025 Findings: Again seen is extensive pulmonary mass lesions throughout the bilateral lung bases with superimposed emphysematous changes. These are increased in size and conspicuity from prior exam likely representing disease progression changes. The liver is normal in attenuation without intrahepatic biliary ductal dilatation. There are dependent calculi seen within the gallbladder. There is no significant common biliary ductal dilatation or abrupt cut off. The spleen is normal in attenuation and size. The stomach and duodenum are grossly unremarkable. The pancreas is normal in attenuation without significant atrophy. The adrenal glands are unremarkable. There is atrophy of the right kidney with mild compensatory hypertrophy of the left kidney. There is demonstration of right-sided nephrostomy tube in satisfactory position coiled within the inferior right renal pelvis. There is persistent moderate perinephric stranding with trace likely postprocedural perinephric hematoma without evidence of significant retroperitoneal hemorrhage. There is moderate prominence and inflammatory changes of the proximal right ureter with inflammation tracking along the right retroperitoneum. No obvious distal obstructive calculus. Moderate to severe stool is seen throughout the proximal colon. Trace colonic diverticulosis without evidence of diverticulitis. Minimal fluid-filled central small bowel without evidence of obstruction. The appendix is unremarkable. Again seen are prominent right pelvic sidewall lymph nodes. The aorta is nonaneurysmal. There is no significant atherosclerotic disease appreciated. Redemonstration of pump reservoir within the right inguinal soft tissues. There is mild nonspecific thickening of the dome of the bladder. Mild prostatic hypertrophy. Otherwise the pelvic viscera are grossly within normal limits. There is no free fluid or free air. There is a small fat containing umbilical hernia. Again seen are lytic changes of the T11 and T12 vertebral bodies status post extensive instrumented fusion without evidence of obvious hardware failure. Impression: 1. Demonstration of right-sided nephrostomy tube in grossly satisfactory position within the inferior right calyx/renal pelvis with mild proximal pelvicaliectasis. Minimal nonspecific perinephric inflammatory change and or post placement hematoma is appreciated without evidence of significant retroperitoneal hemorrhage. 2. 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 Please note that all CT scans at this facility use dose modulation, iterative reconstruction, and/or weight-based dosing when appropriate to reduce radiation dose to as low as reasonably achievable. Dictated by Leonardo Muse MD @ 03/27/2025 1:55:29 PM (Electronically Signed) Procedure Note Leonardo Muse MD - 03/27/2025 For Patients: As a result of the Cures Act, medical imagingexams and procedure reports are released immediately into your electronicmedical record. You may view this report before your referring provider.If you have questions, please contact your health care provider. Indication: Right flank pain, no output from right nephrostomy tube placed 1 weekprior Technique: Volumetric multidetector CT images of the abdomen and pelvis were withoutthe administration of intravenous contrast. Comparison: CT urogram February 03, 2025 Findings: Again seen is extensive pulmonary mass lesions throughout the bilaterallung bases with superimposed emphysematous changes. These are increased insize and conspicuity from prior exam likely representing diseaseprogression changes. The liver is normal in attenuation without intrahepatic biliary ductaldilatation. There are dependent calculi seen within the gallbladder. There is no significant common biliary ductal dilatation or abrupt cutoff. The spleen is normal in attenuation and size. The stomach and duodenum are grossly unremarkable. The pancreas is normal in attenuation without significant atrophy. The adrenal glands are unremarkable. There is atrophy of the right kidney with mild compensatory hypertrophy ofthe left kidney. There is demonstration of right-sided nephrostomy tube insatisfactory position coiled within the inferior right renal pelvis. Thereis persistent moderate perinephric stranding with trace likelypostprocedural perinephric hematoma without evidence of significantretroperitoneal hemorrhage. There is moderate prominence and inflammatorychanges of the proximal right ureter with inflammation tracking along theright retroperitoneum. No obvious distal obstructive calculus. Moderate to severe stool is seen throughout the proximal colon. Tracecolonic diverticulosis without evidence of diverticulitis. Minimalfluid-filled central small bowel without evidence of obstruction. The appendix is unremarkable. Again seen are prominent right pelvic sidewall lymph nodes. The aorta is nonaneurysmal. There is no significant atheroscleroticdisease appreciated. Redemonstration of pump reservoir within the right inguinal soft tissues.There is mild nonspecific thickening of the dome of the bladder. Mildprostatic hypertrophy. Otherwise the pelvic viscera are grossly withinnormal limits. There is no free fluid or free air. There is a small fat containing umbilical hernia. Again seen are lytic changes of the T11 and T12 vertebral bodies statuspost extensive instrumented fusion without evidence of obvious hardwarefailure. Impression: 1. Demonstration of right-sided nephrostomy tube in grossly satisfactoryposition within the inferior right calyx/renal pelvis with mild proximalpelvicaliectasis. Minimal nonspecific perinephric inflammatory change andor post placement hematoma is appreciated without evidence of significantretroperitoneal hemorrhage. 2. Overall significantly increased burden of soft tissue metastasis seenthroughout the partially visualized lung bases likely representing diseaseprogression. Please note that all CT scans at this facility use dose modulation,iterative reconstruction, and/or weight-based dosing when appropriate toreduce radiation dose to as low as reasonably achievable. Dictated by Leonardo Muse MD @ 03/27/2025 1:55:29 PM (Electronically Signed) Joe Poole MD CT Final Resu lt * EXTRA TUBE CHAPMAN (03/27/2025 12:17 PM CDT) Blood BLOOD SPECIMEN / Unknown Extra Tube / Unknown 03/27/2025 12:17 PM CDT 03/27/2025 12:27 PM CDT Joe Poole MD LABORATORY Final Resu lt [facility] [address] [place], [place] [address] * (ABNORMAL) CBC W PLT NO DIFF (03/27/2025 12:15 PM CDT) WHITE BLOOD COUNT 8.5 4.5 - 11.0 thou/cu mm 03/27/2025 12:34 PM CDT [facility] [facility] RED BLOOD COUNT 4.45 4.30 - 5.90 mil/cu mm 03/27/2025 12:34 PM CDT [facility] HEMOGLOBIN 13.4(L) 13.5 - 17.5 g/dL 03/27/2025 12:34 PM CDT [facility] HEMATOCRIT 40.6 37.0 - 53.0 % 03/27/2025 12:34 PM CDT [facility] MCV 91 80 - 100 fL 03/27/2025 12:34 PM CDT [facility] MCH 30.1 26.0 - 34.0 pg 03/27/2025 12:34 PM CDT [facility] MCHC 33.0 32.0 - 36.0 g/dL 03/27/2025 12:34 PM CDT [facility] RDW 13.6 11.5 - 15.5 % 03/27/2025 12:34 PM CDT [facility] PLATELET COUNT 233 140 - 440 thou/cu mm 03/27/2025 12:34 PM CDT [facility] MPV 9.7 6.5 - 11.0 fL 03/27/2025 12:34 PM CDT [facility] NRBC 0.0 % 03/27/2025 12:34 PM CDT [facility] ABS NRBC 0.0 thou /cu mm 03/27/2025 12:34 PM CDT [facility] Blood BLOOD SPECIMEN / Unknown Non-Lab Venipuncture / Unknown 03/27/2025 12:15 PM CDT 03/27/2025 12:22 PM CDT us Joe Poole MD HEMATOLOGY Final Resu lt [facility] [address] [place] [address], * (ABNORMAL) BASIC METABOLIC PANEL (03/27/2025 12:15 PM CDT) Only the most recent of2 resultswithin the time period is included. SODIUM 140 136 - 145 mmol/L 03/27/2025 12:59 PM CDT [facility] POTASSIUM 4.3 3.5 - 5.1 mmol/L 03/27/2025 12:59 PM CDT [facility] CHLORIDE 103 98 - 107 mmol/L 03/27/2025 12:59 PM CDT [facility] CO2,TOTAL 27 22 - 29 mmol/L 03/27/2025 12:59 PM CDT [facility] ANION GAP 10 5 - 18 03/27/2025 12:59 PM CDT [facility] GLUCOSE 93 70 - 99 mg/dL 03/27/2025 12:59 PM CDT [facility] CALCIUM 9.4 8.8 - 10.4 mg/dL 03/27/2025 12:59 PM CDT [facility] Comment: Reference ranges for this test were updated on 03/31/2024 to reflect our healthy population more accurately. Reference range changes are not retroactively applied to results, but previous results using the same methodology can be interpreted in the context of the new reference range. BUN 27(H) 8 - 23 mg/dL 03/27/2025 12:59 PM CDT [facility] CREATININE 1.18 0.70 - 1.20 mg/dL 03/27/2025 12:59 PM CDT [facility] BUN/CREAT RATIO 23(H) 10 - 20 12:59 PM CDT [facility] eGFR 66(L) >90 mL/min/1.7 3m2 03/27/2025 12:59 PM CDT [facility] Comment:As of 2021, eG FR is calculated by the CKD-EPI creatinine equation without race adjustment. eGFR can be influenced by muscle mass, exercise, and diet. The reported eGFR is an estimation only and is only applicable if the renal function is stable. Blood BLOOD SPECIMEN / Unknown Non-Lab Venipuncture / Unknown 03/27/2025 12:15 PM CDT 03/27/2025 12:22 PM CDT Joe Poole MD CHEMISTRY Final Resu lt Performing Organization Address [facility]/[facility] Co de Phone Number [facility] [address] [address], [place] * (ABNORMAL) Hemoglobin AM (03/20/2025 5:00 AM CDT) Only the most recent of2 resultswithin the time period is included. HEMOGLOBIN 12.8(L) 13.5 - 17.5 g/dL 03/20/2025 5:25 AM CDT [facility] [facility] MCV 94 80 - 100 fL 03/20/2025 5:25 AM CDT [facility] Blood BLOOD SPECIMEN / Unknown Venipuncture / Unknown 03/20/2025 5:00 AM CDT 03/20/2025 5:14 AM CDT Guero Wagner MD HEMATOLOGY Final Res ult Performing Organization Address [facility] Co de Phone Number [facility] [address] [address], [place] * IR PERCUTANEOUS TUBE PLACEMENT (03/19/2025 4:05 PM CDT) Anatomical Region Laterality Modality X-Ray Angiograph y, Other Impressions 03/20/2025 4:39 PM CDT 1. Successful fluoroscopically guided placement of percutaneous nephrostomy tube. 2. As requested by urology, attempt was made to retrieve the indwelling ureteral stent from the new nephrostomy access, but due to variety of factors discussed above this was quite difficult and ultimately unsuccessful. Patient will need to have stent removed and separate cystoscopy procedure. Kwame Stearns MD Vascular & Interventional Radiology [facility] [phone] Narrative 03/20/2025 4:39 PM CDT PROCEDURE(S): Image guided percutaneous right nephrostomy tube placement with antegrade nephrostogram (cpt: 80304) Attempted, but ultimately unsuccessful, retrieval of indwelling ureteral stent with snare. INDICATION: History of urothelial carcinoma with obstruction of right urinary tract. Recent placement of retrograde ureteral stent for relief of obstruction. Stent is poorly tolerated and urology requests nephrostomy tube placement and ureteral stent removal. COMPARISON: CT 02/03/2025 HOUSEKEEPER/LAUNDRY ASSISTANT(S): Kwame Stearns MD SEDATION: Moderate. Supervision of moderate sedation was performed by the IR attending (Kwame Stearns MD). An IR staff sedation RN administered conscious sedation throughout this procedure, with continuous monitoring of the patient's cardiopulmonary status. Total time for sedation was 49 minutes. MEDICATIONS: midazolam 2 mg IV, fentanyl 100 mcg IV, 1% lidocaine 20 mL SQ REMOVED (NOT SENT): none SAMPLE: none IMPLANTED DEVICE(S): 10 Fr Sim-Louis catheter ESTIMATED BLOOD LOSS: <10 mL CONTRAST: Omnipaque 350, 25 mL COMPLICATIONS: none FLUOROSCOPY TIME: 21.7 minutes RADIATION DOSE: 722 mGy CONSENT: The risks, benefits, and alternatives of the planned procedure were explained in detail to the patient and/or patient's family/DPOA. Questions were answered, and a written informed consent was obtained. TIME OUT: A verification process was completed by the entire team to confirm the patient, procedure, site, allergies, etc. STERILE PREPARATION: All elements of maximal sterile barrier technique were followed, including use of cap, mask, gown, gloves, drapes, chlorhexidine 2%/isopropyl alcohol/povidone-iodine, and hand hygiene. TECHNIQUE: The right flank was prepped and draped in the usual sterile fashion. Initial ultrasound scanning demonstrated nondilated right collecting system. Under ultrasound guidance, a posterior calyx was targeted and an 22 gauge trocar needle was advanced into the collecting system. An ultrasound image was saved and sent to PACS. As there is an indwelling ureteral stent, I knew I had a fluoroscopic landmark for percutaneous access of the collecting system. Therefore I decided to place the tube using fluoroscopic guidance rather than ultrasound. Soft tissues anesthetized with 1% lidocaine. Under real-time fluoroscopic guidance, a 22-gauge needle was advanced from posterior approach until it was in contact with the loop of the indwelling ureteral stent. Contrast and air are injected opacifying the collecting system. An air-filled posterior calyx in the lower pole of the kidney was identified. Image intensifier was placed in a right inferior oblique position and a skin access site for the lower pole calyx was identified. Under real-time fluoroscopic guidance, a second 22-gauge needle was advanced into that calyx. Contrast injection confirmed that was within the calyx. However, when I inserted the microwire, I was unable to advance it centrally into the renal pelvis likely due to some poor angulation. After struggling to get the wire into the pelvis for a few minutes I gave up that access and decided to access a another posterior pole in the interpolar region. A second skin access site was delineated with the II in right oblique position. Again using fluoroscopic guidance, 22-gauge needle was advanced into a posterior calyx in the interpolar region of the kidney. Contrast injection confirmed appropriate position. Microwire was advanced into the renal pelvis and down the ureter. Access was dilated with AccuStick set allowing for placement of Amplatz wire in the ureter. The urology team was requesting retrieval of the indwelling stent if possible. Therefore, an 8 [place]an sheath was placed over the Amplatz wire into the renal pelvis. A second Amplatz wire was placed down the ureter. The sheath was then removed and inserted on only one of the wires leaving the other free as a gino wire. The wire which was through the sheath was then removed and a 6 [place] ensnare was inserted. The loop of the ureteral stent was in an upper pole calyx. The snare was manipulated into that region. I tried for several minutes to engage the loop of the stent with the snare, but was ultimately not able to do so. Given the small size and lack of dilation of the right collecting system as well as the loop being formed in a calyx rather than the pelvis, it was very difficult to manipulate the snare around the stent. Further attempts to get the snare were then abandoned. The stent will have to be removed in a subsequent cystoscopy procedure. The sheath was removed. Over the remaining Amplatz wire, a 10 [place] Sim-Louis catheter was inserted. Sim-Louis catheter was chosen due to the small size of the renal pelvis. The pigtail was formed in the renal pelvis and contrast injection confirmed appropriate position. It was secured to the skin with 2-0 Ethilon suture, covered with a sterile dressing, and connected to a drainage bag. The patient tolerated the procedure well without immediate post procedural complication. FINDINGS: Initial ultrasound demonstrates a nondilated dilated right collecting system. I chose to place the catheter with fluoroscopic guidance. Successful fluoroscopic guided access of a lower pole calyx. However, needle would not advance into the pelvis. Then an interpolar calyx was accessed successfully and used for the remainder of the procedure. Urology had requested removal of the indwelling stent if possible. The pigtail of the stent is formed in an upper pole calyx. That combined with small nondilated collecting system made stent retrieval very difficult. Nevertheless a snare was inserted and I attempted this for several minutes but was unsuccessful. 10 [place] Sim-Louis catheter was placed with pigtail in renal pelvis. Completion antegrade nephrostogram demonstrates new tube in good position. Carlos Eudardo Marks MD IR Fi nal Result * Platelet Count (03/19/2025 11:00 AM CDT) [facility] PLATELET COUNT 197 140 - 440 thou/cu mm 03/19/2025 11:29 AM CDT [facility] MPV 9.8 6.5 - 11.0 fL 03/19/2025 11:29 AM CDT [facility] Blood BLOOD SPECIMEN / Unknown Non-Lab Venipuncture / Unknown 03/19/2025 11:00 AM CDT 03/19/2025 11:19 AM CDT Kwame Stearns MD HEMATOLOGY Final R esult [facility] [address] [place] [address], * (ABNORMAL) Creatinine (03/19/2025 11:00 AM CDT) [facility] eGFR 65(L) >90 mL/min/1.7 3m2 03/19/2025 11:49 AM CDT [facility] Comment:As of 2021, eG FR is calculated by the CKD-EPI creatinine equation without race adjustment. eGFR can be influenced by muscle mass, exercise, and diet. The reported eGFR is an estimation only and is only applicable if the renal function is stable. CREATININE 1.19 0.70 - 1.20 mg/dL 03/19/2025 11:49 AM CDT [facility] Blood BLOOD SPECIMEN / Unknown Non-Lab Venipuncture / Unknown 03/19/2025 11:00 AM CDT 03/19/2025 11:20 AM CDT Kwame Stearns MD CHEMISTRY Final R esult Performing Organization Address City/State/[facility] Co de Phone Number [facility] [address] [place] [address], * Protime-INR (03/19/2025 11:00 AM CDT) INR 1.0 <1.3 03/19/2025 11:39 AM CDT [facility] PROTIME 11.5 10.6 - 12.4 sec 03/19/2025 11:39 AM CDT [facility] Blood BLOOD SPECIMEN / Unknown Non-Lab Venipuncture / Unknown 03/19/2025 11:00 AM CDT 03/19/2025 11:19 AM CDT Narrative [facility] - 03/19/2025 11:39 AM CDT Therapeutic Range 2.0-3.0 for most anticoagulated patients 2.5-3.5 or 4.0 for high risk patients The INR is only used for patients on stable oral anticoagulant therapy. It makes no significant contribution to the diagnosis or treatment of patients whose Protime is prolonged for other reasons. INR results are increased when heparin levels exceed 1.0 U/mL, which corresponds to an aPTT >125 seconds if the patient is on UFH. Kwame Stearns MD HEMATOLOGY Final R esult [facility] [address] [place] [address], [place] * LAB TRACKING EVENT (02/09/2025 2:27 PM CDT) Other (Other) Client Collect / Unknown 02/09/2025 2:27 PM CDT 02/09/2025 2:27 PM CDT us Foreign Zhou MD LAB BILL ONLY Final Res ult Performing Organization Address City/[facility]/ZIP Co de Phone Number [facility] [address] [place] [address], [place] * PATH-MISC/ANCILLARY TEST (02/09/2025 2:27 PM CDT) Case Report Surgical Pathology Report Case: [id number] Authorizing Provider: Foreign Zhou MD Collected: 02/09/2025 1427 Ordering Location: [facility] Received: 02/09/2025 1428 Pathologist: Marlon Porter MD Specimen: Station 7 Subcarinal Lymph Node[facility] [id number] 5 5:13 PM CDT [facility] Results TESTING INFORMATION FOR GASTRIC/BLADDER HER2 IMMUNOHISTOCHEMISTRY ANALYSIS: Negative (0 by manual morphometry) 5 5:[address] [facility] [place] [place] [facility] at 1713 CDT Clinical Information Bladder cancer, Her2 Testing by immunohistochemistry 5 5:[address] [facility] [place] [place] [facility] Gross Description HER2 immunohistochemistry was performed and scored at [facility] using the gastric HER2 scoring algorithm for fam-trastuzumab deruxtecan-nxki (ENHERTU) based on RAFIA-OevXxjek69 ([id number]), RAFIA-Lung01 ([id number]), and RAFIA-CRC02 ([id number]) clinical trials. Materials and Methods: - An adequate number of tumor cells on the re-cut H&E stain section. - The positive and negative control tissue demonstrate appropriate staining HER2 is assayed by immunohistochemistry with microscopy following tissue fixation in 10% neutral buffered formalin. Tissue sections are incubated with the PATHWAY HER2/will antibody (4B5), performed on the [place] BenchMark ULTRA instrument, and visualized using the UltraView [place] DAB Detection kit. This is a lab-developed assay (LDT). This immunohistochemical stain is interpreted using manual morphometry. Gastric/Bladder HER2 immunohistochemistry interpretation for biopsy specimens: HER2 immunohistochemistry: 3+ (Positive): Tumor cell cluster (>= 5 tumor cells) with strong, complete, basolateral, or lateral membranous reactivity irrespective of the percentage of tumor cells stained. HER2 immunohistochemistry: 2+ (Equivocal): Tumor cell cluster (>= 5 tumor cells) with weak to moderate, complete, basolateral or lateral membranous reactivity irrespective of percentage of tumor cells stained HER2 immunohistochemistry: 1+ (Negative): Tumor cell cluster (>= 5 tumor cells) with faint/barely perceptible membranous reactivity irrespective of percentage of tumor cells stained. HER2 immunohistochemistry: 0 (Negative): No or membranous reactivity in any tumor cell. The performance of this assay has not been validated on decalcified specimens. Results on decalcified specimens should be interpreted with caution given the likelihood of a false negative result on decalcified specimens. 5 5:[address] [facility] [place] [place] [facility] Microscopic Description The final diagnosis is based on microscopic examination of appropriate sections of all specimens. 5 5:[address] [facility] [place] [place] [facility] Additional Information Interpreted at [facility] - [address] [place] [id number] Immunohistochemistry controls were reviewed and approved as appropriate by the pathologist during this examination. 5 5:[address] [facility] [place] [place] [facility] Other (Station 7 Subcarinal Lymph Node) 02/09/2025 2:27 PM CDT 02/09/2025 2:28 PM CDT Foreign Zhou MD PATHOLOGY/CYTOLOGY Final Result [facility] [address] [place] [address], [place] * XR RETROGRADE PYELOGRAM W/WO KUB (02/05/2025 12:01 PM CDT) Anatomical Region Laterality Modality KIDNEYS, Abdomen Digital Radiogr aphy Narrative 02/05/2025 11:22 AM CDT 7 seconds fluoroscopy time was provided. See operative/procedure report for further information. us Ryan Dong MD GENERAL IMAGING Final Res ult * HCHG MASK PR5 (02/05/2025 11:34 AM CDT) Narrative Kwadwo Hand, ARLYN - 02/05/2025 11:34 AM CDT Kwadwo Hand CRNA 02/05/2025 11:35 AM Procedure: Supraglottic Patient location during procedure: OR Supraglottic Airway Properties Mask Ventilation: not attempted Type: unique Tube Size: 5 Insertion Attempts: 1 Placement Verification: auscultation and CO2 detection Assessment Assessment: atraumatic and dentition unchanged Diana Torres MD ANESTHESIA PX NOTE ORD ERABLES Final Result * [facility] RESULTS (02/04/2025 9:52 AM CDT) Narrative 02/04/2025 9:52 AM CDT Ordered by an unspecified provider. Other Clinical Staff OTHER Final Resul t * CT ABDOMEN PELVIS UROGRAM WWO (02/03/2025 12:38 PM CDT) Anatomical Region Laterality Modality Abdomen, Pelvis, KIDNEYS, BLADDER Computed Tomography 02/03/2025 12:5 6 PM CDT Impressions 02/03/2025 12:56 PM CDT 1. Compared to the January 12, 2025 exam there is worsening delayed nephrogram involving the right kidney compared to the left. Similar proximal urothelial wall thickening and proximal prominence. Findings may reflect underlying decreased right collecting system outflow potentially from stenosis or tumor or blood clot. 2. Redemonstration of numerous pulmonary nodules within the lung bases as well as masses. Some of these are stable from prior exam while others have increased in size, for example in the right lower lobe with pulmonary lobulated mass measuring 53 x 49 millimeters, previously measuring 40 by 51 millimeters. Please note that all CT scans at this facility use dose modulation, iterative reconstruction, and/or weight-based dosing when appropriate to reduce radiation dose to as low as reasonably achievable. Dictated by Steffen Alexander MD @ 02/03/2025 12:56:11 PM (Electronically Signed) Narrative 02/03/2025 12:56 PM CDT For Patients: As a result of the Century Cures Act, medical imaging exams and procedure reports are released immediately into your electronic medical record. You may view this report before your referring provider. If you have questions, please contact your health care provider. INDICATION: Urothelial carcinoma. Severe right flank pain and increased creatinine TECHNIQUE: CT abdomen and pelvis urogram without and with 100 cc Omnipaque 350 IV contrast. Contrast images were obtained in the nephrographic and delayed phases. COMPARISON: January 12, 2025 and dating back to March 2024. FINDINGS: Lower chest: Redemonstration of numerous pulmonary nodules within the lung bases as well as masses. Some of these are stable from prior exam while others have increased in size, for example in the right lower lobe with pulmonary lobulated mass measuring 53 x 49 millimeters, previously measuring 40 by 51 millimeters. ABDOMEN: Streak artifact from patient`s thoracolumbar fixation hardware degrades fine detail evaluation throughout the abdomen and pelvis. Liver: Normal enhancement. No focal suspicious hepatic lesions. Gallbladder and biliary: Normal gallbladder without radiopaque stone. Normal caliber bile ducts. Spleen: Normal size and enhancement. Pancreas: Normal enhancement without peripancreatic inflammatory changes or ductal dilatation. Adrenal glands: Normal adrenal glands. Kidneys and ureters: Compared to the January 12, 2025 exam there is worsening delayed nephrogram involving the right kidney compared to the left. Similar proximal urothelial wall thickening and proximal prominence. Suboptimal opacification of the right renal collecting system. Normal enhancement of the left kidney. No left- sided hydroureteronephrosis. No discrete abnormal areas of left-sided urothelial wall thickening or enhancement. GI tract: The stomach is relatively decompressed. Normal caliber small and large bowel loops. The appendix is not definitively visualized. Vascular structures: Normal caliber aorta with atherosclerotic calcifications. Lymph nodes: Prominent stable right external iliac lymph node. Peritoneum: No free air, free fluid, or focal drainable fluid collection. Redemonstration penile prosthesis. Prosthesis pump Fluid within the reservoir. No free air or focal drainable collection. PELVIS: Genitourinary system: Urinary bladder is partially distended and opacified with contrast. Mild circumferential wall thickening of the urinary bladder. No discrete large bladder mass. Prostatomegaly. SKELETAL STRUCTURES AND SOFT TISSUES: Stable osseous structures and soft tissues. Procedure Note Steffen Alexander MD - 02/03/2025 For Patients: As a result of the Cures Act, medical imagingexams and procedure reports are released immediately into your electronicmedical record. You may view this report before your referring provider.If you have questions, please contact your health care provider. INDICATION: Urothelial carcinoma. Severe right flank pain and increased creatinine TECHNIQUE: CT abdomen and pelvis urogram without and with 100 cc Omnipaque 350 IVcontrast. Contrast images were obtained in the nephrographic and delayedphases. COMPARISON: January 12, 2025 and dating back to March 2024. FINDINGS: Lower chest: Redemonstration of numerous pulmonary nodules within the lungbases as well as masses. Some of these are stable from prior exam whileothers have increased in size, for example in the right lower lobe withpulmonary lobulated mass measuring 53 x 49 millimeters, previouslymeasuring 40 by 51 millimeters. ABDOMEN: Streak artifact from patient`s thoracolumbar fixation hardwaredegrades fine detail evaluation throughout the abdomen and pelvis. Liver: Normal enhancement. No focal suspicious hepatic lesions. Gallbladder and biliary: Normal gallbladder without radiopaque stone.Normal caliber bile ducts. Spleen: Normal size and enhancement. Pancreas: Normal enhancement without peripancreatic inflammatory changesor ductal dilatation. Adrenal glands: Normal adrenal glands. Kidneys and ureters: Compared to the January 12, 2025 exam there isworsening delayed nephrogram involving the right kidney compared to theleft. Similar proximal urothelial wall thickening and proximal prominence.Suboptimal opacification of the right renal collecting system. Normalenhancement of the left kidney. No left- sided hydroureteronephrosis. Nodiscrete abnormal areas of left-sided urothelial wall thickening orenhancement. GI tract: The stomach is relatively decompressed. Normal caliber small andlarge bowel loops. The appendix is not definitively visualized. Vascular structures: Normal caliber aorta with atheroscleroticcalcifications. Lymph nodes: Prominent stable right external iliac lymph node. Peritoneum: No free air, free fluid, or focal drainable fluid collection.Redemonstration penile prosthesis. Prosthesis pump Fluid within thereservoir. No free air or focal drainable collection. PELVIS: Genitourinary system: Urinary bladder is partially distended and opacifiedwith contrast. Mild circumferential wall thickening of the urinarybladder. No discrete large bladder mass. Prostatomegaly. SKELETAL STRUCTURES AND SOFT TISSUES: Stable osseous structures and softtissues. IMPRESSION: 1. Compared to the January 12, 2025 exam there is worsening delayednephrogram involving the right kidney compared to the left. Similarproximal urothelial wall thickening and proximal prominence. Findings mayreflect underlying decreased right collecting system outflow potentiallyfrom stenosis or tumor or blood clot. 2. Redemonstration of numerous pulmonary nodules within the lung bases aswell as masses. Some of these are stable from prior exam while others haveincreased in size, for example in the right lower lobe with pulmonarylobulated mass measuring 53 x 49 millimeters, previously measuring 40 by51 millimeters. Please note that all CT scans at this facility use dose modulation,iterative reconstruction, and/or weight-based dosing when appropriate toreduce radiation dose to as low as reasonably achievable. Dictated by Steffen Alexander MD @ 02/03/2025 12:56:11 PM (Electronically Signed) us Foreign Zhou MD CT Final Res ult * CT CHEST ABDOMEN PELVIS W (01/12/2025 2:14 PM CDT) Anatomical Region Laterality Modality Abdomen, Pelvis, AORTA, LIVER, SPLEEN, CHEST Computed Tomography 01/14/2025 8:59 AM CDT Addenda Addendum by Juan Pablo Prasad MD on 01/24/2025 8:33 AM CDT INDICATION: Urothelial carcinoma. TECHNIQUE: CT scan of the chest, abdomen, abdomen, and pelvis with 100 cc Omnipaque 350 given intravenously. Comparison : CT scans of the chest, abdomen, and pelvis dated 06 Oct 2024 and 08 July 2024. Findings : Chest: Prominent subcarinal and bilateral hilar lymph nodes are unchanged. No axillary adenopathy. No central pulmonary emboli. The lungs show emphysema. Multiple bilateral pulmonary nodules/masses throughout the lungs with the largest located in the posterior aspect of the right lower lobe best seen in image 94 of series 2 measuring 2.3 cm are unchanged. No pneumothorax. Abdomen and pelvis: No focal abnormalities identified in the visualized portions of the liver, spleen, pancreas, and adrenal glands. Atrophic right kidney. Right-sided ureteral stent. Normal appearance of the left kidney. No hydronephrosis. Penile prosthesis. The GI tract is incompletely distended but shows no gross abnormalities. No retroperitoneal, pelvic sidewall, or mesenteric adenopathy. Atherosclerotic vascular calcifications. Stabilization hardware in the lower thoracic and lumbar spine. Impression : 1. Multiple bilateral pulmonary nodules/masses are unchanged. 2. Prominent subcarinal and bilateral hilar lymph nodes are unchanged. 3. Right ureteral stent. No hydronephrosis. Please note that all CT scans at this facility use dose modulation, iterative reconstruction, and/or weight-based dosing when appropriate to reduce radiation dose to as low as reasonably achievable. Dictated by Juan Pablo Prasad MD @ 01/14/2025 8:59:07 AM ----- ADDENDUM ----- Addendum : Enlarged subcarinal and bilateral hilar lymph nodes are slightly increased in size with the subcarinal lymph node measuring 1.8 cm in short axis, previously 1.6 cm in short axis. Multiple bilateral pulmonary nodules/masses are worsened with the largest located in the posterior aspect of the right lower lobe measuring 4.5 x 3.3 cm, previously 3.7 x 2.3 cm. No right ureteral stent. Dictated by Juan Pablo Prasad MD @ Jan 24 2025 8:25AM (Electronically Signed) Narrative 01/14/2025 8:59 AM CDT For Patients: As a result of the Century Cures Act, medical imaging exams and procedure reports are released immediately into your electronic medical record. You may view this report before your referring provider. If you have questions, please contact your health care provider. INDICATION: Urothelial carcinoma. TECHNIQUE: CT scan of the chest, abdomen, abdomen, and pelvis with 100 cc Omnipaque 350 given intravenously. Comparison : CT scans of the chest, abdomen, and pelvis dated 06 Oct 2024 and 08 July 2024. Findings : Chest: Prominent subcarinal and bilateral hilar lymph nodes are unchanged. No axillary adenopathy. No central pulmonary emboli. The lungs show emphysema. Multiple bilateral pulmonary nodules/masses throughout the lungs with the largest located in the posterior aspect of the right lower lobe best seen in image 94 of series 2 measuring 2.3 cm are unchanged. No pneumothorax. Abdomen and pelvis: No focal abnormalities identified in the visualized portions of the liver, spleen, pancreas, and adrenal glands. Atrophic right kidney. Right-sided ureteral stent. Normal appearance of the left kidney. No hydronephrosis. Penile prosthesis. The GI tract is incompletely distended but shows no gross abnormalities. No retroperitoneal, pelvic sidewall, or mesenteric adenopathy. Atherosclerotic vascular calcifications. Stabilization hardware in the lower thoracic and lumbar spine. Impression : 1. Multiple bilateral pulmonary nodules/masses are unchanged. 2. Prominent subcarinal and bilateral hilar lymph nodes are unchanged. 3. Right ureteral stent. No hydronephrosis. Please note that all CT scans at this facility use dose modulation, iterative reconstruction, and/or weight-based dosing when appropriate to reduce radiation dose to as low as reasonably achievable. Dictated by Juan Pablo Prasad MD @ 01/14/2025 8:59:07 AM (Electronically Signed) Procedure Note Juan Pablo Prasad MD - 01/14/2025 For Patients: As a result of the Cures Act, medical imagingexams and procedure reports are released immediately into your electronicmedical record. You may view this report before your referring provider.If you have questions, please contact your health care provider. INDICATION: Urothelial carcinoma. TECHNIQUE: CT scan of the chest, abdomen, abdomen, and pelvis with 100 cc [id number] given intravenously. Comparison : CT scans of the chest, abdomen, and pelvis dated 06 Oct 2024 and 2024. Findings : Chest: Prominent subcarinal and bilateral hilar lymph nodes are unchanged. Noaxillary adenopathy. No central pulmonary emboli. The lungs show emphysema. Multiple bilateral pulmonary nodules/masses throughout the lungs with thelargest located in the posterior aspect of the right lower lobe best seenin image 94 of series 2 measuring 2.3 cm are unchanged. No pneumothorax. Abdomen and pelvis: No focal abnormalities identified in the visualized portions of the liver,spleen, pancreas, and adrenal glands. Atrophic right kidney. Right-sided ureteral stent. Normal appearance ofthe left kidney. No hydronephrosis. Penile prosthesis. The GI tract is incompletely distended but shows no gross abnormalities. No retroperitoneal, pelvic sidewall, or mesenteric adenopathy.Atherosclerotic vascular calcifications. Stabilization hardware in the lower thoracic and lumbar spine. Impression : 1. Multiple bilateral pulmonary nodules/masses are unchanged. 2. Prominent subcarinal and bilateral hilar lymph nodes are unchanged. 3. Right ureteral stent. No hydronephrosis. Please note that all CT scans at this facility use dose modulation,iterative reconstruction, and/or weight-based dosing when appropriate toreduce radiation dose to as low as reasonably achievable. Dictated by Juan Pablo Prasad MD @ 01/14/2025 8:59:07 AM (Electronically Signed) Foreign Zhou MD CT Edited Re sult - Final * (ABNORMAL) CREATININE,ISTAT (01/12/2025 1:24 PM CDT) CREATININE, POCT 1.40(H) 0.57 - 1.11 mg/dL 01/12/2025 1:26 PM CDT [facility] Comment:Caution: Patients ta demetria Hydroxyurea have falsely increased iStat Creatinine results. Verify creatinine results ordering a Creatinine (24881.2) eGFR 54(L) >90 mL/min/1.7 3m2 01/12/2025 1:26 PM CDT [place] [email or web address] Comment:As of 2021, eG FR is calculated by the CKD-EPI creatinine equation without race adjustment. eGFR can be influenced by muscle mass, exercise, and diet. The reported eGFR is an estimation only and is only applicable if the renal function is stable. Blood BLOOD SPECIMEN / Unknown 01/12/2025 1:24 PM CDT 01/12/2025 1:26 PM CDT us Foreign Zhou MD CHEMISTRY Final Res ult [facility] [address] [place] [address], * COLONOSCOPY (03/19/2016 9:06 AM CDT) 03/19/2016 9:06 AM CDT Narrative 03/19/2016 9:06 AM CDT Patient Name: Juan Pablo Bernstein Procedure Date: 03/19/2016 Gender: Male Date of : 1955 Admit Type: Ambulatory Procedure: Colonoscopy Proceduralist: Corey Cr [facility] Indications/Pre-Op Diagnosis: Screening for colorectal malignant neoplasm, Last colonoscopy: January 2006 Medications: The level of sedation administered was moderate, Midazolam 5 mg IV, Fentanyl 100 micrograms IV Procedure Description: The patient had risks, benefits and alternatives explained to and gave informed consent. The patient had a stable cardiopulmonary status and judged an adequate candidate for conscious sedation. The Colonoscope was passed through the anus and advanced to the cecum, identified by appendiceal orifice and ileocecal valve. The colonoscopy was performed without difficulty. The patient tolerated the procedure well. The quality of the bowel preparation was good. Complications: No immediate complications. Estimated blood loss: None. Estimated Blood Loss & Specimen: Estimated blood loss: none. Specimen collected - None Findings: The perianal and digital rectal examinations were normal. The colon (entire examined portion) appeared normal. Impressions/Post-Op Diagnosis: - The entire examined colon is normal. - No specimens collected. Recommendation: - Repeat colonoscopy in 10 years for screening purposes. Corey Cr 03/19/2016 9:50:31 AM This report has been signed electronically. Note Initiated On: 03/19/2016 9:06 AM Procedure Note Corey Cr R - 03/19/2016 9:50 AM CDT Patient Name: Juan Pablo Bernstein Procedure Date: 03/19/2016 Gender: Male Date of : 1955 Admit Type: Ambulatory Procedure: Colonoscopy Proceduralist: Corey Cr [facility] Indications/Pre-Op Diagnosis: Screening for colorectal malignant neoplasm, Last colonoscopy: January 2006 Medications: The level of sedation administered was moderate, Midazolam 5 mg IV, Fentanyl 100 micrograms IV Procedure Description: The patient had risks, benefits and alternatives explained to andgave informed consent. The patient had a stable cardiopulmonary status and judged an adequate candidate for conscious sedation. The Colonoscope was passed through the anus and advanced to thececum, identified by appendiceal orifice and ileocecal valve. Thecolonoscopy was performed without difficulty. The patient tolerated the procedure well. The quality of the bowel preparation was good. Complications: No immediate complications. Estimated blood loss: None. Estimated Blood Loss & Specimen: Estimated blood loss: none. Specimen collected - None Findings: The perianal and digital rectal examinations were normal. The colon (entire examined portion) appeared normal. Impressions/Post-Op Diagnosis: - The entire examined colon is normal. - No specimens collected. Recommendation: - Repeat colonoscopy in 10 years for screening purposes. Corey Cr, 03/19/2016 9:50:31 AM This report has been signed electronically. Note Initiated On: 03/19/2016 9:06 AM Corey Cr MD PROCEDURE ORD Final Re sult from Last 3 Months or Most Recently Relevant to Health Maintenance Insurance MEDICARE PART B HB ONLY MEDICARE PART A HB ONLY MEDICA PRIME SOLUTION HB MEDICARE PART B HB ONLY WC FEDERATED MEDICARE PART B HB ONLY MEDICA PRIME SOLUTION HB WORKERS COMP Advance Directives * Full Code (Latest Code Status on File) Date Activated Date Inactivated Comments 03/26/2025 7:32 AM 03/26/2025 12:51 PM Question Answer Comments Code Status Discussion: Reviewed Preferences * Full Code Date Activated Date Inactivated Comments 03/19/2025 6:17 PM 03/20/2025 7:30 PM Question Answer Comments Code Status Discussion: Reviewed Preferences * Full Code Date Activated Date Inactivated Comments 02/05/2025 9:19 AM 02/05/2025 3:54 PM Question Answer Comments Code Status Discussion: Not Discussed * Full Code Date Activated Date Inactivated Comments 11/16/2024 12:00 PM 11/17/2024 2:34 AM Question Answer Comments Code Status Discussion: Reviewed Preferences * Full Code Date Activated Date Inactivated Comments 04/06/2024 10:33 AM 04/06/2024 6:33 PM Question Answer Comments Code Status Discussion: Reviewed Preferences Care Teams Software Design Engineer Relationship Specialty Start Date End Date Loretta Mcclellan PA-C [address] [place], [place] [address] [id number] PCP - General Physician Air Quality Consultant 10/02/24 Jauny Pritchett MBBS Internal Medicine 05/13/14
--- NOTE | 2025-04-06 12:36 | ED.GENADULT ---
HPI - General Adult General Chief complaint: Unspecified Complaint, Adult Stated complaint: Pain Time Seen by Provider: 04/06/25 12:26 History of Present Illness HPI narrative: Pt has been on hospice for mets urethral cancer. Pain is too much to manage for pt and so he would like to revoke his hospice because he needs more pain management than hospice was able to provide. Pt has fentanyl patch , methocarbamol , tramadol, has been taking 20mg PO morphine, this AM doses of morphine were 0930 and 1100. Reports pain as 15/03. Pt has nephrostomy on right side which has been giving him some trouble as well. 69 old man presenting to the emergency with stage IV urethral cancer and severe pain. Every 6 or 7 minutes gets a spasm of pain in the right flank. Does have a history of stage IV urethral cancer. Due to outlet obstruction did have series of stents placed in the right ureter/kidney. Ultimately these were causing more pain and had a nephrostomy tube placed 3 weeks ago and pain continued. The remaining stent was removed and did not affect the pain. Admittedly he says this right-sided kidney has some diminished function. The nephrostomy tube never drained particularly well and was actually assessed a week and half at [facility] and noted not to have a blockage/tube occlusion. They are under the impression that there is nothing else that can be done. Pain has now increased again over the last few days. Is currently in hospice. Started recently on methocarbamol and fentanyl patch yesterday. Fentanyl patches 12 mcg. Otherwise has tramadol for pain management. Does not sound as though there were many other options given for pain management so revoking hospice, presented to the emergency department for further cares. Do not think they have seen full affect of fentanyl 0. Also takes tamsulosin for bladder spasms. He remarks that he has also just losing control and urinating all over the place. Does have Attends on. Reviewed later that does have Dilaudid available but has not started taking this yet. Reports that he was told not to. Also clarify the did have morphine I believe immediate acting available 20 mg taking every 4 hours but has not been taking this as it has been ineffective he says. I do not know that this was taken along with fentanyl patch yet; does not sound like this was the case Related Data Home Medications ?Medication ?Instructions ?Recorded ?Confirmed acetaminophen 500 mg capsule 500 mg PO Q6H PRN 02/17/25 04/06/25 senna .Route 02/17/25 amitriptyline 50 mg tablet 50 mg PO HS 04/06/25 04/07/25 duloxetine 30 mg capsule,delayed 30 mg PO QAM 04/06/25 04/06/25 release gabapentin 600 mg tablet 600 mg PO TID 04/06/25 04/07/25 hydromorphone 2 mg tablet 2 mg PO Q4H PRN 04/06/25 04/07/25 nifedipine 60 mg tablet,extended 60 mg PO DAILY 04/06/25 04/06/25 release propranolol 20 mg tablet 20 mg PO TID 04/06/25 04/07/25 tamsulosin 0.4 mg capsule 0.4 mg PO DAILY 04/06/25 04/06/25 triamcinolone acetonide 0.1 % applic topical BID 04/06/25 topical cream polyethylene glycol 3350 17 gram 17 g PO DAILY 04/07/25 04/07/25 oral powder packet Previous Rx's ?Medication ?Instructions ?Recorded cephalexin 500 mg capsule 500 mg PO Q8H #15 caps 04/07/25 fentanyl 25 mcg/hr transdermal 1 patch transdermal Q72H #5 ea 04/07/25 patch hydroxyzine HCl 25 mg tablet 25 mg PO TID PRN #30 tabs 04/07/25 Allergies Allergy/AdvReac Type Severity Reaction Status Date / Time No Known Drug Allergies Allergy Verified 02/17/25 11:00 Review of Systems Status of ROS: Reports: 6 or more systems reviewed and unremarkable except as noted in History and below [facility] Medical History (Updated 04/07/25 @ 11:08 by Keisha Mittal MD) Neurogenic bowel ?K59.2 - Neurogenic bowel, not elsewhere classified (ICD-10) Degenerative disc disease Wheelchair dependent ?Z99.3 - Dependence on wheelchair (ICD-10) Hyperlipidemia ?E78.5 - Hyperlipidemia, unspecified (ICD-10) HTN (hypertension) ?I10 - Essential (primary) hypertension (ICD-10) Metastatic urothelial carcinoma ?C79.10 - Secondary malignant neoplasm of unspecified urinary organs (ICD-10) Social History (Updated 04/06/25 @ 20:20 by Janny Edward MD) Narrative: Lives in [place], [place] with . First back surgery in 1982. Has been in wheelchair since 1990 and has remained fairly independent. What is your current living situation?: I presently have a place to live Problems where you live: no known problems In the past 12 months, utilities in danger of being shut off: no In past 12 months, lack of transportation kept you from medical appts, meetings, work, or getting things needed for daily living: no In the past 12 mos, have been you worried that your food would run out before you had money to buy more?: never true In the past 12 mos, the food you bought just didn't last and you didn't have money to buy more?: never true Smoking Status: Never smoker Do you use any of these nicotine containing products: None Second hand tobacco smoke exposure: No How often do you have a drink containing alcohol: never How often do you have six or more drinks on one occasion: Never AUDIT-C Alcohol total score: 0 Non-prescribed substance use: denies use Caffeine: No How often does anyone, including family, friends and others, physically hurt you: never How often does anyone, including family, friends and others, insult or talk down to you: never How often does anyone, including family, friends and others, threaten you with harm: never How often does anyone, including family, friends and others, scream or curse at you: never Exam Narrative: Exam Narrative: Very pleasant. Quite alert. Here with family, spouse and daughter. Transitions hesitantly an apparent discomfort. Is not demonstrating but occasionally winces a little bit in apparent discomfort. Breathing easily. Abdomen is full soft nontender. Bandages surrounding the right nephrostomy tube are in place. Not wet. I do not appreciate any induration or erythema the skin in the area. Const: Vital Signs, click to edit/add: Vital Signs - 24 hr 04/06/25 12:30 04/06/25 12:53 04/06/25 12:57 Temperature 97.6 F Pulse Rate [Pulse Oximeter] 88 Respiratory Rate 20 Respiratory Rate [ Lower Medial Flank ] 10 L Blood Pressure [Ri ght Upper Arm] 107/52 L Pulse Oximetry 90 88 Oxygen Delivery Me thod Room Air 04/06/25 17:57 Temperature Pulse Rate [Pulse Oximeter] 88 Respiratory Rate 28 H Respiratory Rate [ Lower Medial Flank ] Blood Pressure [Ri ght Upper Arm] 138/77 Pulse Oximetry 95 Oxygen Delivery Me thod Room Air Documenting provider has reviewed patient's vital signs: yes Course Vital Signs Vital signs: Initial Vital Signs Temperature 97.6 F 04/06/25 12:30 Temperature Source Temporal Artery Scan 04/06/25 12:30 Pulse Rate 88 04/06/25 12:30 Respiratory Rate 20 04/06/25 12:30 Blood Pressure 107/52 L 04/06/25 12:30 Blood Pressure Mean 70 04/06/25 12:30 Blood Pressure Position Sitting 04/06/25 12:30 Pulse Oximetry 90 04/06/25 12:30 Oxygen Delivery Method Room Air 04/06/25 12:30 Vital Signs Temperature 97.6 F 04/06/25 12:30 Pulse Rate 88 04/06/25 12:30 Respiratory Rate 20 04/06/25 12:30 Blood Pressure 107/52 L 04/06/25 12:30 Pulse Oximetry 90 04/06/25 12:30 Oxygen Delivery Method Room Air 04/06/25 12:30 Temperature 97.6 F 04/07/25 11:00 Pulse Rate 75 04/07/25 11:00 Respiratory Rate 20 04/07/25 11:00 Blood Pressure 144/66 H 04/07/25 11:00 Pulse Oximetry 93 04/07/25 11:00 Oxygen Delivery Method Room Air 04/07/25 08:33 Medications Administered Medications: Discontinued Medications Generic Name Dose Route Start Last Admin Trade Name Gurdeepq PRN Reason Stop Dose Admin Acetaminophen 1,000 mg 04/06/25 23:15 04/07/25 12:31 Acetaminophen 325 Mg Tablet PO 975 mg Q6H FAHAD Administration Celecoxib 200 mg 04/06/25 23:15 04/07/25 10:03 Celecoxib 200 Mg Capsule PO 200 mg DAILY FAHAD Administration Fentanyl 1 patch 04/06/25 21:00 04/06/25 21:04 Fentanyl 25 Mcg/Hr Patch TRANSDERMA 1 patch Q72H FAHAD Administration Hydromorphone HCl 1 mg 04/06/25 12:57 04/06/25 13:29 Hydromorphone 0.5 Mg/0.5 Ml Inj IVP 04/06/25 12:58 0.5 mg ONCE ONE Administration Hydromorphone HCl 0.5 mg 04/06/25 17:47 04/06/25 17:54 Hydromorphone 0.5 Mg/0.5 Ml Inj IVP 04/06/25 17:48 0.5 mg ONCE ONE Administration Hydromorphone HCl 0.5 mg 04/06/25 18:53 04/06/25 19:02 Hydromorphone 0.5 Mg/0.5 Ml Inj IVP 04/06/25 18:54 0.5 mg ONCE ONE Administration Hydromorphone HCl 0.5 mg 04/06/25 20:54 04/06/25 21:02 Hydromorphone 0.5 Mg/0.5 Ml Inj IVP 0.5 mg Q1H PRN Administration Pain Hydromorphone HCl 2 mg 04/07/25 12:02 04/07/25 12:16 Hydromorphone 2 Mg Tablet PO 2 mg Q2H PRN Administration Ceftriaxone Sodium 2 gm/ 100 mls @ 200 mls/hr 04/06/25 16:53 04/06/25 20:53 Sodium Chloride IVPB 04/06/25 16:54 Infused ONCE ONE Infusion Ceftriaxone Sodium 2 gm/ 100 mls @ 200 mls/hr 04/07/25 13:00 04/07/25 12:53 Sodium Chloride IVPB Infused Q24H [facility] Infusion Lidocaine 1 patch 04/06/25 23:15 04/06/25 23:48 Lidocaine 5% Patch TRANSDERMA 1 patch Q24H [facility] Administration Protocol Morphine Sulfate 10 mg 04/06/25 20:54 04/07/25 03:56 Morphine 10 Mg/0.5 Ml Oral Soln PO 10 mg Q1H PRN Administration Sodium Chloride 5 ml 04/06/25 21:00 04/07/25 09:55 Sodium Chloride 0.9 % (Flush) 10 Ml Syringe IVF Not Given BID [facility] Medical Decision Making MDM Narrative Medical decision making narrative: I did discuss expectations of care. Clearly have a good deal of room to go with pain management. Will try to give relief of pain initially with some Dilaudid IV and after discussion, if there is possible surgical intervention, perhaps drainage of some fluid collection or even nephrectomy, might be done he would be amenable to it with focus of getting some pain relief. Does not appear to be infected, septic, but check labs also this regard. He is understanding that he was not to take the Dilaudid perhaps since he started the fentanyl patches. I did discuss this case with hospitalist on-call anticipating potential need for admission for pain management. INDICATION: Severe right flank pain. TECHNIQUE: CT abdomen and pelvis without contrast. COMPARISON: None. FINDINGS: Lower chest: Innumerable masses and nodules throughout the lung bases. Multiple cysts and cavitary lesions are intermixed within the nodules as well. Associated interlobular septal thickening. Liver: Normal in size and attenuation. No suspicious masses. Gallbladder and bile ducts: Cholelithiasis. No inflammation or biliary ductal dilation. Pancreas: Unremarkable. No mass or inflammation. Spleen: Normal in size. No masses. Adrenal glands: Normal in size. No nodules. Kidneys: Right percutaneous nephrostomy. Mild right-sided hydroureter and periureteral stranding without obstructing lesion visualized. GI tract: Unremarkable. Normal in caliber. No sign of mass. No evidence for appendicitis. Vasculature: Normal caliber abdominal aorta with mild atherosclerotic calcification. Lymph nodes: No lymphadenopathy. Peritoneum/Abdominal Wall: Unremarkable. No free air or significant free fluid. Pelvis: Penile prosthesis. Few small foci of air within the bladder lumen. Bones: Sense of thoracolumbar fusion hardware. Prior fusion changes of the lower lumbar spine. Advanced degenerative changes of the bilateral hips. No aggressive osseous lesion. IMPRESSION: 1. Right-sided percutaneous nephrostomy tube. No hydronephrosis. Mild right-sided hydroureter with periureteral stranding without obstructing lesion visualized. Query postprocedural changes or sequela of an ascending urinary tract infection. Recommend correlation with urinalysis. 2. Few small foci of air within the bladder lumen, again may be postprocedural or represent infection. 3. Innumerable masses and nodular opacities, some of which are cavitary lesions, within the lung bases concerning for metastatic disease or a multilobar infectious/inflammatory process. 4. Cholelithiasis without evidence for acute cholecystitis. Please note that all CT scans at this facility use dose modulation, iterative reconstruction, and/or weight-based dosing when appropriate to reduce radiation dose to as low as reasonably achievable. Dictated by Nick Farley MD @ 04/06/2025 2:43:14 PM INDICATION: Abnormality seen on abdomen/pelvis CT scan. TECHNIQUE: CT chest without contrast. COMPARISON: CT, January 24, 2025. FINDINGS: Lungs and pleura: Worsening diffuse bilateral pulmonary nodules/nodular consolidations, some with cavitations. No pleural effusions, pleural thickening, or pneumothorax. Heart and vasculature: Heart size is normal. Coronary artery calcifications. Thoracic aorta and pulmonary artery are normal in caliber. Lymph nodes/mediastinum: Multiple mildly enlarged mediastinal and bilateral hilar lymph nodes.. Chest wall: No masses. Upper abdomen: Please refer to same-day CT abdomen/pelvis for further evaluation.. Bones: Posterior thoracolumbar hardware fixation. IMPRESSION: Worsening diffuse bilateral pulmonary nodules/nodular consolidations, some with cavitations, likely worsening pulmonary metastasis in this patient with known malignancy. Superimposed infection should be clinically excluded. Persistent multiple mildly enlarged mediastinal bilateral hilar lymph nodes. Please note that all CT scans at this facility use dose modulation, iterative reconstruction, and/or weight-based dosing when appropriate to reduce radiation dose to as low as reasonably achievable. Dictated by Ryan Gonzalez MD @ 04/06/2025 2:39:15 PM Over time in the emergency department pain appeared relatively well controlled. Does appear to a urinary tract infection; I do not have prior cultures to guide further cares. Anticipating discharge did dose with Rocephin. Anticipating cephalexin as outpatient. Did require oxygen support at least to keep oxygen saturations above 85%. Did not appear to be in distress from respiratory standpoint however. At rest was dipping to 83% or so off oxygen. Shortly prior to departure pain flared suddenly. Ureteral spasm associated? He and family in tears. He has not been demonstrating like this during his time here. Family has not witnessed this degree of escalation of pain. So much so that he did become incontinent of urine. Very concerned with being able to manage his pain and requesting admission to sort this out. Consulted with our hospitalist regarding cares and potential admission. And returned to clarify hospice designation. At this point hospice has been revoked though they would not be opposed to returning to hospice, it sounds as though there is some concern with the hospice that they had before, miscommunications perhaps but does not sound as though they have confidence with just revoked hospice providers. Re-dosed with Dilaudid. Monitoring. Improved but still fearful of ability to control pain properly. Did discuss again with hospitalist who is accepting for admission to assist with pain management and clarify needs. Medical Records Medical records reviewed: Yes I reviewed the patient's medical records Lab Data Lab results reviewed: Yes I reviewed the patient's lab results Labs: Lab Results 04/06/25 04/06/25 Range/Units 13:15 14:45 WBC 10.57 (4.50-11.00) K/uL RBC 4.62 (4.30-5.90) m/uL Hgb 13.9 (13.5-17.5) gm/dL Hct 41.9 (37.0-53.0) % MCV 91 (80-100) fL MCH 30 (26-34) pg MCHC 33 (32-36) gm/dL RDW Coeff of Ronnie 13.0 (11.5-15.5) % Plt Count 235 (140-440) K/uL Neut % (Auto) 70.3 (42.0-72.0) % Lymph % (Auto) 11.1 L (20-44) % [place] % (Auto) 11.9 H (0.0-11.0) % Eos % (Auto) 6.1 (0.0-7.0) % Baso % (Auto) 0.5 (0.0-3.0) % Neut # (Auto) 7.43 H (1.7-7.0) K/uL Lymph # (Auto) 1.20 (0.90-2.90) K/uL [place] # (Auto) 1.30 H (0.00-0.90) K/UL Eos # (Auto) 0.65 H (0.00-0.50) K/uL Baso # (Auto) 0.05 (0.00-0.30) K/uL Abs Immat Gran (auto) 0.01 (0.00-0.30) K/uL Imm/Tot Granulo (auto) 0.1 % Sodium 135 (135-149) mmol/L Potassium 4.0 (3.6-5.1) mmol/L Chloride 92 L (96-114) mmol/L Carbon Dioxide 31 (20-32) mmol/L Anion Gap 12 (7-15) mEq/L BUN 24 (7-30) mg/dL Creatinine 1.1 (0.5-1.5) mg/dL Estimated Creat Clear 71.61 Estimated GFR 72 ml/min Glucose 104 (60-115) mg/dL Calcium 9.4 (8.4-10.6) mg/dL C-Reactive Protein 6.9 H (0.5-1.0) mg/dL Urine Color Red A (Yellow) Urine Appearance Cloudy A (Clear) Urine pH 8.5 (5.0-8.5) Ur Specific Peterson 1.010 (1.000-1.030) Urine Protein 3+ A (Negative) Urine Glucose (UA) Negative (Negative) Urine Ketones Trace A (Negative) Urine Blood 3+ A (Negative) Urine Nitrite Negative (Negative) Urine Bilirubin 1+ A (Negative) Urine Urobilinogen 1.0 (0.2-1.0) Ur Leukocyte Esterase 3+ A (Negative) Urine RBC >100 A (0-2) Urine WBC 25-50 A (0-5) Ur Squamous Epith Cells None (None-Few) Urine Bacteria Moderate A (None) Discharge Plan Discharge Clinical Impression: Pain, UTI (urinary tract infection), Metastatic cancer Patient Disposition: Admitted As Observation Condition: Unchanged Activity Level: Activity as Tolerated Discharge Diet: Regular
--- NOTE | 2025-04-06 12:57 | CRLHL7_ITS ---
For Patients: As a result of the Century Cures Act, medical imaging exams and procedure reports are released immediately into your electronic medical record. You may view this report before your referring provider. If you have questions, please contact your health care provider. INDICATION: Severe right flank pain. TECHNIQUE: CT abdomen and pelvis without contrast. COMPARISON: None. FINDINGS: Lower chest: Innumerable masses and nodules throughout the lung bases. Multiple cysts and cavitary lesions are intermixed within the nodules as well. Associated interlobular septal thickening. Liver: Normal in size and attenuation. No suspicious masses. Gallbladder and bile ducts: Cholelithiasis. No inflammation or biliary ductal dilation. Pancreas: Unremarkable. No mass or inflammation. Spleen: Normal in size. No masses. Adrenal glands: Normal in size. No nodules. Kidneys: Right percutaneous nephrostomy. Mild right-sided hydroureter and periureteral stranding without obstructing lesion visualized. GI tract: Unremarkable. Normal in caliber. No sign of mass. No evidence for appendicitis. Vasculature: Normal caliber abdominal aorta with mild atherosclerotic calcification. Lymph nodes: No lymphadenopathy. Peritoneum/Abdominal Wall: Unremarkable. No free air or significant free fluid. Pelvis: Penile prosthesis. Few small foci of air within the bladder lumen. Bones: Sense of thoracolumbar fusion hardware. Prior fusion changes of the lower lumbar spine. Advanced degenerative changes of the bilateral hips. No aggressive osseous lesion. IMPRESSION: 1. Right-sided percutaneous nephrostomy tube. No hydronephrosis. Mild right-sided hydroureter with periureteral stranding without obstructing lesion visualized. Query postprocedural changes or sequela of an ascending urinary tract infection. Recommend correlation with urinalysis. 2. Few small foci of air within the bladder lumen, again may be postprocedural or represent infection. 3. Innumerable masses and nodular opacities, some of which are cavitary lesions, within the lung bases concerning for metastatic disease or a multilobar infectious/inflammatory process. 4. Cholelithiasis without evidence for acute cholecystitis. Please note that all CT scans at this facility use dose modulation, iterative reconstruction, and/or weight-based dosing when appropriate to reduce radiation dose to as low as reasonably achievable. Dictated by Nick Farley MD @ 04/06/2025 2:43:14 PM (Electronically Signed)
[2025-04-06 13:26] LABS: Hematocrit* 41.9 % (37.0-53.0); Hemoglobin* 13.9 gm/dL (13.5-17.5); Immature Granulocytes Abs Auto 0.01 K/uL (0.00-0.30); Immature Granulocytes Pct Auto 0.1 %; Mean Corpuscular HGB Conc 33 gm/dL (32-36); Mean Corpuscular Hemoglobin 30 pg (26-34); Mean Corpuscular Volume 91 fL (80-100); RDW Coefficient of Variation % 13.0 % (11.5-15.5); Red Blood Count* 4.62 m/uL (4.30-5.90); White Blood Count* 10.57 K/uL (4.50-11.00)
[2025-04-06 13:27] LABS: Lymphocytes Absolute Auto 1.20 K/uL (0.90-2.90); Slide Review Reflex No
[2025-04-06 13:40] LABS: Chloride* 92 mmol/L (96-114); Potassium* 4.0 mmol/L (3.6-5.1); Sodium* 135 mmol/L (135-149)
[2025-04-06 13:43] LABS: Blood Urea Nitrogen* 24 mg/dL (7-30); Creatinine* 1.1 mg/dL (0.5-1.5); Est. Creatinine Clearance* 71.61; Estimated Glomerular Filt Rate 72 ml/min
[2025-04-06 13:44] LABS: Anion Gap 12 mEq/L (7-15); Calcium* 9.4 mg/dL (8.4-10.6); Carbon Dioxide* 31 mmol/L (20-32); Glucose* 104 mg/dL (60-115)
[2025-04-06 15:37] LABS: Appearance Urine Cloudy (Clear)
[2025-04-06] MEDS: cefTRIAXone 2 GM in 0.9 % SODIUM CHLORIDE Mini-bag 100 ML IVPB (17:03)
--- NOTE | 2025-04-06 20:16 | PM.IMHP1 ---
Assessment and Plan Assessment and plan (1) Metastatic urothelial carcinoma: Problem comment: -dx in 03/19 with presentation of cough, fever and WOODS. workup showed the right urothelial malignancy was already metastatic to the lung and liver. -Chemo from 04/19 - 03/20. Side effects, disease progression transitioned to quality of life and pallative care Status: Acute (2) Cough with hemoptysis: Problem comment: known large cavitary lung mets Status: Acute (3) Pain crisis: Problem comment: -scheduled Tylenol and Celebrex; lidoderm patches -will increase fentanyl, use SL morphine prn and benzos as appropriate -will need social work to help with PCP in [place] with palliative care consult arranged Status: Acute (4) UTI (urinary tract infection): Problem comment: -noted, 2 grams rocephin given in the ED. UC pending. -2 grams [id number] ordered Status: Acute (5) Wheelchair dependent: Problem comment: since early from neurogenic claudication Status: Acute (6) Insomnia secondary to depression with anxiety: Status: Acute (7) Neurogenic bowel: Status: Acute (8) Neurogenic bladder: Status: Acute (9) HTN (hypertension): Problem comment: will hold home antihypertensive regimen Status: Acute (10) Admission for end of life care: Status: Acute Hospitalist- H&P: HPI History of Present Illness Date Seen: 04/06/25 Chief complaint: Pain Narrative: ADMISSION HISTORY AND PHYSICAL - HOSPITALIST Chief Complaint: Pain crisis; Hospice revoked; questions about how to manage end of life issues HPI: 69 y/o WM with a history of urothelial cancer with metastasis to the liver, lung, lymph nodes and right ureter hydronephrosis presents in pain crisis. He recently had a right percutaneous nephrostomy placed at [facility] on 03/19/2025. This was performed because his right-sided ureteral stent was not managing his ureteral obstruction effectively. A follow-up procedure on 03/26/2025 was a cystoscopy to remove the stent that was unable to be removed on 03/19. He was in the ED at [facility] on 03/27/25 for concerns about pain and lack of urine coming from the PCN. Urology felt it was fine and thought pain control was more the issue. He was transitioned off of tramadol to dilaudid orally. Previous to the PCN he had met with his oncology team and decided to stop chemo. That note is printed and reviewed. He was referred to Hospice ([facility] out of [facility]). He's been on Hospice for about a week. He is frustrated; different RN each day; as his states no quarterback and he is in pain and not sure what to take. Further conversation reveals he would like to treat the complications of his cancer or immunosuppression but just not take toxic chemo or go thru big surgeries. ER COURSE: pain management CODE STATUS: DNR DNI PCP: Needs a new one EMERGENCY CONTACT PLAN: kiersten oshea Rel To Pat Cell I've updated the PFSH, medications and allergies in the Expanse tabs. INVESTIGATIONS: LABS/MICRO/ECG/IMAGING Afebrile Blood pressure 107/52, 138/77 Pulse rate in the 50s and 60s Respiratory rate 20s Pulse ox 88 down to 83% Weight 96.6 kilos CBC reveals a normal white blood cell count at 10.5, normal hemoglobin and normal platelets. Electrolytes reveal that he is hypochloremic but has normal renal function. His glucose is normal. CRP is modestly elevated at 6.9 Urine is red and cloudy with 3+ protein, 3+ blood, 1+ bilirubin. 3+ leukocyte esterase, 25-[address] abdomen pelvis 1. Right-sided percutaneous nephrostomy tube. No hydronephrosis. Mild right-sided hydroureter with periureteral stranding without obstructing lesion visualized. Query postprocedural changes or sequela of an ascending urinary tract infection. Recommend correlation with urinalysis. 2. Few small foci of air within the bladder lumen, again may be postprocedural or represent infection. 3. Innumerable masses and nodular opacities, some of which are cavitary lesions, within the lung bases concerning for metastatic disease or a multilobar infectious/inflammatory process. 4. Cholelithiasis without evidence for acute cholecystitis. CT chest Worsening diffuse bilateral pulmonary nodules/nodular consolidations, some with cavitations, likely worsening pulmonary metastasis in this patient with known malignancy. Superimposed infection should be clinically excluded. Persistent multiple mildly enlarged mediastinal bilateral hilar lymph nodes. UC pending REVIEW OF SYSTEMS: 12-point ROS completed with patient and negative unless otherwise stated in HPI or below. PHYSICAL EXAM: CONSTITUTIONAL: He is able to sit on the side of bed; use the urinal. He is able to make conversation and make lighthearted comments. He does look chronically ill and in pain. GENERAL: Well nourished. No respiratory distress. Speaks in full sentences. VITAL SIGNS: see record. HEENT: Sclerae are anicteric. No petechiae. CARDIAC: rhythm is regular. There is no S3 or rub. No harsh murmurs. Extremities show trace edema with symmetrical pulses. ABDOMEN: soft NEURO: Speech is fluent. A brief neurologic exam is negative. SKIN: No rashes, petechiae, concerning changes PSYCHIATRIC: Euthymic. ADMIT TO MEDSURG: FLOOR CARE DVT: SCDs GI: PO intake Time spent: Today I spent 75 minutes seeing the patient, discussing the patient with ER staff, reviewing Expanse and EPIC notes/diagnostics, discussing the care plan with our care time that includes social work, PT/OT, pharmacy, RT, alf and documenting my impressions and plan in the medical record. [facility] Medical History (Updated 04/06/25 @ 23:13 by Janny Edward MD) Neurogenic bowel ?K59.2 - Neurogenic bowel, not elsewhere classified (ICD-10) Degenerative disc disease Wheelchair dependent ?Z99.3 - Dependence on wheelchair (ICD-10) Hyperlipidemia ?E78.5 - Hyperlipidemia, unspecified (ICD-10) HTN (hypertension) ?I10 - Essential (primary) hypertension (ICD-10) Metastatic urothelial carcinoma ?C79.10 - Secondary malignant neoplasm of unspecified urinary organs (ICD-10) Social History (Updated 04/06/25 @ 20:20 by Janny Edward MD) Narrative: Lives in [place], [place] with . First back surgery in 1982. Has been in wheelchair since 1990 and has remained fairly independent. Meds Home Medications and Allergies Home Medications ?Medication ?Instructions ?Recorded ?Confirmed ?Type acetaminophen 500 mg capsule 500 mg PO Q6H PRN 02/17/25 04/06/25 History multivitamin with iron .Route 02/17/25 History senna .Route 02/17/25 History amitriptyline 50 mg tablet 50 mg PO QPM 04/06/25 04/06/25 History duloxetine 30 mg capsule,delayed 30 mg PO QAM 04/06/25 04/06/25 History release fentanyl 12 mcg/hr transdermal 1 patch topical Q3D 04/06/25 04/06/25 History patch gabapentin 600 mg tablet 600 mg PO 3XD 04/06/25 04/06/25 History hydromorphone 2 mg tablet mg PO 04/06/25 History nifedipine 60 mg tablet,extended 60 mg PO DAILY 04/06/25 04/06/25 History release propranolol 20 mg tablet 20 mg PO 3XD 04/06/25 04/06/25 History tamsulosin 0.4 mg capsule 0.4 mg PO DAILY 04/06/25 04/06/25 History tramadol 50 mg tablet 50 mg PO Q6H PRN pain 04/06/25 04/06/25 History triamcinolone acetonide 0.1 % applic topical BID 04/06/25 History topical cream Allergies Allergy/AdvReac Type Severity Reaction Status Date / Time No Known Drug Allergies Allergy Verified 02/17/25 11:00 Exam Const: Vital Signs, click to edit/add: Vital Signs - 24 hr 04/06/25 12:30 04/06/25 12:53 04/06/25 12:57 Temperature 97.6 F Pulse Rate [Pulse Oximeter] 88 Respiratory Rate 20 Respiratory Rate [ Lower Medial Flank ] 10 L Blood Pressure [Ri ght Upper Arm] 107/52 L Pulse Oximetry 90 88 Oxygen Delivery Me thod Room Air 04/06/25 17:57 Temperature Pulse Rate [Pulse Oximeter] 88 Respiratory Rate 28 H Respiratory Rate [ Lower Medial Flank ] Blood Pressure [Ri ght Upper Arm] 138/77 Pulse Oximetry [facility] - H&P: Result Labs Labs: Short CBC 04/06/25 Range/Units 13:15 WBC 10.57 (4.50-11.00) K/uL Hgb 13.9 (13.5-17.5) gm/dL Hct 41.9 (37.0-53.0) % Plt Count 235 (140-440) K/uL BMP 04/06/25 13:15 Sodium 135 Potassium 4.0 Chloride 92 L Carbon Dioxide 31 BUN 24 Creatinine 1.1 Glucose 104 Calcium 9.4 Urine 04/06/25 Range/Units 14:45 Urine Color Red A (Yellow) Urine Appearance Cloudy A (Clear) Urine pH 8.5 (5.0-8.5) Ur Specific [place] 1.010 (1.000-1.030) Urine Protein 3+ A (Negative) Urine Glucose (UA) Negative (Negative)
[2025-04-06] MEDS: SODIUM CHLORIDE 0.9 % (FLUSH) 10 ML SYRINGE 5 ML IVF (21:07)
[2025-04-06] MEDS: MORPHINE 10 MG/0.5 ML ORAL SOLN PO ×2 (21:51→23:18)
[2025-04-06] MEDS: LIDOCAINE 5% PATCH 1 PATCH TRANSDERMA (23:48)
[2025-04-06] MEDS: CELECOXIB 200 MG CAPSULE PO (23:49)
[2025-04-06] MEDS: ACETAMINOPHEN 325 MG TABLET 1000 MG PO (23:50)
[2025-04-07 03:00] VITALS: BP 127/67; PULSE 89; RESP 18; TEMP 36.8; O2SAT 90
[2025-04-07] MEDS: MORPHINE 10 MG/0.5 ML ORAL SOLN PO (03:56)
[2025-04-07 05:00] VITALS: BMI 27.1; BMI 27.2
[2025-04-07] MEDS: ACETAMINOPHEN 325 MG TABLET 1000 MG PO ×2 (05:15→12:31)
--- NOTE | 2025-04-07 06:15 | PC.NURSE ---
End of Shift Note 253 Patient has been very pleasant and cooperative throughout shift. VSS. Afebrile. Patient moves SBA on wheel chair. SCDs in place. Lidocaine patch on lower back. Fentanyl patch right lower abdomen. Patient has a nephrostomy tube/bag on right side/leg. Patient uses call light appropriately. Call light within reach.
[2025-04-07 08:33] VITALS: BP 147/78; PULSE 83; RESP 18; TEMP 36.7; O2SAT 90
[2025-04-07] MEDS: CELECOXIB 200 MG CAPSULE PO (10:03)
[2025-04-07 11:00] VITALS: BP 144/66; PULSE 75; RESP 20; TEMP 36.4; O2SAT 93
--- NOTE | 2025-04-07 11:00 | PM.DS1 ---
DS: Providers Provider Date Seen: 04/07/25 Date of admission: 04/06/25 20:20 Primary care physician: Not a Local Provider Admitting Clinician: Janny Edward MD Attending Physician on discharge: Keisha Mittal MD Date of Discharge: 04/07/25 DS: Diagnosis Discharge Diagnosis (1) Metastatic urothelial carcinoma: Status: Acute Problem details: -dx in 03/19 with presentation of cough, fever and WOODS. workup showed the right urothelial malignancy was already metastatic to the lung and liver. -Chemo from 04/19 - 03/20. Side effects, disease progression so discontinued aggressive treatment (2) Cough with hemoptysis: Status: Acute Problem details: - known large cavitary lung mets (3) Pain crisis: Status: Acute Problem details: - increased Fentanyl patch during stay with morphine/hydromorphone for breakthrough pain - prior to admission, was on approximately 125 morphine equivalents/hour (equal to 46mcg/hr of Fentanyl) - discussed with family how/when to titrate up Fentanyl upon discharge, has both oral Hydromorphone and Morphine at home for breakthrough pain (4) UTI (urinary tract infection): Status: Acute Problem details: - treated with Ceftriaxone during stay, culture pending - home on course of Keflex (5) Wheelchair dependent: Status: Acute Problem details: - since early 2/2 neurogenic claudication (6) Insomnia secondary to depression with anxiety: Status: Acute (7) Neurogenic bowel: Status: Acute (8) Neurogenic bladder: Status: Acute (9) HTN (hypertension): Status: Acute DS: Summary Hospital Course Hospital Course: Juan Pablo is a 69-year-old male with known metastatic urothelial carcinoma who was recently admitted to [facility] and presented to the emergency room in a pain crisis on 04/06/2025. No new offending process identified for pain in the emergency room; ultimately revoke hospice and was admitted for pain control. During stay, his fentanyl patch (initially placed on 04/05/2025) was increased from 12 --> 25mcg. His outpatient pain management regimen was reviewed (recently started Fentanyl patch as noted above, using oral Morphine or oral Dilaudid for breakthrough pain); on approximately 125 MME/day (equivalent to 50mcg Fentanyl patch). Recurrent UTIs with +UA, treated with Ceftriaxone during stay; discharging home on Keflex with culture pending. We've increased his patch upon discharge (to 25mcg, daughter has instruction on how to titrate this up further prn), he has both oral Dilaudid and Morphine at home to use up to Q2H prn breakthrough pain. He has elected to not re-enroll in hospice, but is interested in working with his PCP and Palliative Care through [place] for pain management and quality of life improvement upon discharge. Daughter bedside during visit today and in agreement with plan, questions answered. Status at Discharge Functional status at discharge: wheelchair bound Overall status at discharge: patient is progressing back to baseline Time Spent with Patient Time attestation: Total time spent providing and/or coordinating discharge services: Time spent: Greater than 30 minutes Exam Narrative: Exam Narrative: Sitting comfortably in wheelchair, nontoxic Const: Vital Signs, click to edit/add: Vital Signs - 24 hr 04/06/25 12:30 04/06/25 12:53 04/06/25 12:57 Temperature 97.6 F Pulse Rate [Left P ulse Oximeter] Pulse Rate [Pulse Oximeter] 88 Respiratory Rate 20 Respiratory Rate [ Lower Medial Flank ] 10 L Blood Pressure [Ri ght Arm] Blood Pressure [Ri ght Upper Arm] 107/52 L Pulse Oximetry 90 88 Oxygen Delivery Me thod Room Air 04/06/25 17:57 04/06/25 20:00 04/06/25 20:36 Temperature Pulse Rate [Left P ulse Oximeter] 91 Pulse Rate [Pulse Oximeter] 88 6 L Respiratory Rate 28 H 8 L 18 Respiratory Rate [ Lower Medial Flank ] Blood Pressure [Ri ght Arm] 160/74 H Blood Pressure [Ri ght Upper Arm] 138/77 133/77 Pulse Oximetry 95 86 L 81 L Oxygen Delivery Nv thod Room Air Room Air Room Air 04/06/25 20:54 04/06/25 23:00 04/07/25 03:00 Temperature 99.2 F 98.3 F Pulse Rate [Left P ulse Oximeter] 91 93 89 Pulse Rate [Pulse Oximeter] Respiratory Rate 18 18 18 Respiratory Rate [ Lower Medial Flank ] Blood Pressure [Ri ght Arm] 160/74 H 122/61 127/67 Blood Pressure [Ri ght Upper Arm] Pulse Oximetry 81 L 84 L 90 Oxygen Delivery Me thod Room Air Room Air Room Air 04/07/25 08:33 Temperature 98.1 F Pulse Rate [Left P ulse Oximeter] 83 Pulse Rate [Pulse Oximeter] Respiratory Rate 18 Respiratory Rate [ Lower Medial Flank ] Blood Pressure [Ri ght Arm] 147/78 H Blood Pressure [Ri ght Upper Arm] Pulse Oximetry 90 Oxygen Delivery Me thod Room Air DS: Data Data Completed and Pending Completed studies during hospitalization: INDICATION: Severe right flank pain. TECHNIQUE: CT abdomen and pelvis without contrast. COMPARISON: None. FINDINGS: Lower chest: Innumerable masses and nodules throughout the lung bases. Multiple cysts and cavitary lesions are intermixed within the nodules as well. Associated interlobular septal thickening. Liver: Normal in size and attenuation. No suspicious masses. Gallbladder and bile ducts: Cholelithiasis. No inflammation or biliary ductal dilation. Pancreas: Unremarkable. No mass or inflammation. Spleen: Normal in size. No masses. Adrenal glands: Normal in size. No nodules. Kidneys: Right percutaneous nephrostomy. Mild right-sided hydroureter and periureteral stranding without obstructing lesion visualized. GI tract: Unremarkable. Normal in caliber. No sign of mass. No evidence for appendicitis. Vasculature: Normal caliber abdominal aorta with mild atherosclerotic calcification. Lymph nodes: No lymphadenopathy. Peritoneum/Abdominal Wall: Unremarkable. No free air or significant free fluid. Pelvis: Penile prosthesis. Few small foci of air within the bladder lumen. Bones: Sense of thoracolumbar fusion hardware. Prior fusion changes of the lower lumbar spine. Advanced degenerative changes of the bilateral hips. No aggressive osseous lesion. IMPRESSION: 1. Right-sided percutaneous nephrostomy tube. No hydronephrosis. Mild right-sided hydroureter with periureteral stranding without obstructing lesion visualized. Query postprocedural changes or sequela of an ascending urinary tract infection. Recommend correlation with urinalysis. 2. Few small foci of air within the bladder lumen, again may be postprocedural or represent infection. 3. Innumerable masses and nodular opacities, some of which are cavitary lesions, within the lung bases concerning for metastatic disease or a multilobar infectious/inflammatory process. 4. Cholelithiasis without evidence for acute cholecystitis. Please note that all CT scans at this facility use dose modulation, iterative reconstruction, and/or weight-based dosing when appropriate to reduce radiation dose to as low as reasonably achievable. Pending studies at discharge: Urine culture Labs on day of discharge: Labs from last 24 hours 04/06/25 04/06/25 14:45 13:15 WBC 10.57 RBC 4.62 Hgb 13.9 Hct 41.9 MCV 91 MCH 30 MCHC 33 RDW Coeff of Ronnie 13.0 Plt Count 235 Neut % (Auto) 70.3 Lymph % (Auto) 11.1 L Yell % (Auto) 11.9 H Eos % (Auto) 6.1 Baso % (Auto) 0.5 Neut # (Auto) 7.43 H Lymph # (Auto) 1.20 Yell # (Auto) 1.30 H Eos # (Auto) 0.65 H Baso # (Auto) 0.05 Abs Immat Gran (auto) 0.01 Imm/Tot Granulo (auto) 0.1 Sodium 135 Potassium 4.0 Chloride 92 L Carbon Dioxide 31 Anion Gap 12 BUN 24 Creatinine 1.1 Estimated Creat Clear 71.61 Estimated GFR 72 Glucose 104 Calcium 9.4 C-Reactive Protein 6.9 H Urine Color Red A Urine Appearance Cloudy A Urine pH 8.[address] [place] 1.010 Urine Protein 3+ A Urine Glucose (UA) Negative Urine Ketones Trace A Urine Blood 3+ A Urine Nitrite Negative Urine Bilirubin 1+ A Urine Urobilinogen 1.0 Ur Leukocyte Esterase 3+ A Urine RBC >100 A Urine WBC 25-50 A Ur Squamous Epith Cells None Urine Bacteria Moderate A Preliminary micro results at discharge 04/06/25 14:45 Urine Culture - Preliminary Urine,Clean Catch Culture in Progress Discharge Plan Discharge Disposition: Home, Self-Care Date of Admission: 04/06/25 20:20 Attending Provider on Discharge: Keisha Mittal Primary Care Provider: Provider,Not a Local Condition: Unchanged Anticipated Discharge Date/Time: 04/07/25 10:52 Discharge Medications: New fentanyl 25 mcg/hr Patch 72 Hour 1 patch transdermal Q72H Qty: 5 0RF hydroxyzine HCl 25 mg tablet 25 mg PO TID PRNQty: 30 0RF Rx Instructions: pruritis cephalexin 500 mg capsule 500 mg PO Q8H Qty: 15 0RF Continued acetaminophen 500 mg capsule 500 mg PO Q6H PRN senna [Senokot] .Route gabapentin 600 mg tablet 600 mg PO TID amitriptyline 50 mg tablet 50 mg PO HS triamcinolone acetonide 0.1 % cream topical BID hydromorphone 2 mg tablet 2 mg PO Q4H PRN tamsulosin 0.4 mg capsule 0.4 mg PO DAILY propranolol 20 mg tablet 20 mg PO TID nifedipine 60 mg tablet extended release 60 mg PO DAILY duloxetine 30 mg capsule,delayed release(DR/EC) 30 mg PO QAM polyethylene glycol 3350 17 gram powder in packet 17 g PO DAILY Discontinued multivitamin with iron .Route tramadol 50 mg tablet 50 mg PO Q6H PRN (Reason: pain) fentanyl 12 mcg/hr patch 72 hour 1 patch topical Q3D rosuvastatin 20 mg tablet 20 mg PO QPM Discharge Orders: Discharge Order (Routine); Ordered 04/07/25 Ordered By: Keisha Mittal Patient Education: Cephalexin (By mouth), Hydroxyzine (By mouth), Fentanyl (Absorbed through the skin), Urinary Tract Infection in Men (GEN) Additional Instructions: For PAIN: - New Fentanyl patch (25mcg) every 3 days as baseline pain medication - For breakthrough pain, use Hydromorphone OR Morphine every 2 hours as needed. If needing every 2hours, consider INCREASING the Fentanyl patch (place one of the 12mcg patches IN ADDITION to the 25mcg patch for total of 37mcg) - STOP tramadol (likely not providing much relief) - CONTINUE Gabapentin (helps with nerve pain and may be providing some itch relief For ITCHING: - CONTINUE Gabapentin - ADD Vistaril (Hydroxyzine) as needed Vistaril and new patches at [facility], PLUS a 5 day course of antibiotics. For FOLLOWUP: - we will set up an appt with Loretta to discuss plan of care and urgent referral to Palliative Care - the Office number for [facility] in [place] is [phone] Activity Level: Activity as Tolerated Discharge Diet: Regular Follow Up Appointments: Loretta Mcclellan PA-C [Referring, Family Practice] - 04/09/25 2:45 pm Referral Note: This appointment is at the [facility] ([address] [place] [address] [place] Patient needs a referral to Palliative Care at [place]. Provider,Not a Local [Primary Care Provider, Family Practice] Forms: [facility] Info Instructions
[2025-04-07 11:32] VITALS: O2SAT 82; O2SAT 90; O2SAT 94
[2025-04-07] MEDS: cefTRIAXone 2 GM in 0.9 % SODIUM CHLORIDE Mini-bag 100 ML IVPB (12:37)
--- NOTE | 2025-04-07 15:28 | PC.NURSE ---
The patient discharged home with his daughter this afternoon. New pain management plan was addressed prior to discharge, as well as palliative care consult. Follow up appointment was scheduled. All questions were answered. Lia DAS BSN
== END 2025-04-07 14:30 | disposition home or self-care (01) ==
LOC: ED 20:02 → MEDSURG 20:22
PROVIDERS: Admitting Provider Family Medicine; Emergency Provider Family Medicine; Visit Provider Family Medicine
DX: C68.0 Malignant neoplasm of urethra (principal); R52 Pain, unspecified; N39.0 Urinary tract infection, site not specified; R04.2 Hemoptysis; G47.00 Insomnia, unspecified; K59.2 Neurogenic bowel, not elsewhere classified; N31.8 Other neuromuscular dysfunction of bladder; I10 Essential (primary) hypertension; Z99.3 Dependence on wheelchair
CPT/HCPCS: 36415; 71250; 74176; 80048; 81001; 85025; 86140; 87086; 87186; 94761; 96360; 96365; 96375; 96376; 99284; 99285; A9270; G0378; J0696; J1171